=== PATIENT | male | born 1960 | race Caucasian/White ===

== ENCOUNTER 2020-12-25 07:33 | Outpatient (CLI) | payer BC, SELFPAY ==
[2020-12-25 07:37] VITALS: BMI 28.8
--- NOTE | 2020-12-25 07:51 | ECG_ITS ---
[facility] Test Date: 2020-12-25 Pat Name: Aaron Mcintosh Department: Room: Gender: Male Manager Food: : 1960 Requested By: Annamaria Cheney Order Number: [id number] Mireles MD: Frida Franco M.D. Interpretive Statements NAME OF STUDY: EXERCISE SESTAMIBI STRESS TEST INDICATION: Chest Pain Baseline blood pressure of 197/87 mm Hg, heart rate of 99 beats per minute and oxygen saturation of 96%. EKG showed normal sinus rhythm, normal axis with normal ST-Ts. The patient exercised for 4 minutes 6 seconds on a standard Tj protocol. Patient attained a maximum heart rate of 146 beats per minute(93 % of the maximum predicted heart rate) with a blood pressure at the peak exercise of 216/106 mm Hg and oxygen saturation 93%. The EKG at the peak exercise revealed sinus tachycardia with no significant ST-T wave changes. Patient did not have any chest pain or any significant arrhythmis with the exercise. The study was terminated due to exertional fatigue and shortness of breath. During the recovery phase, there were no new changes. Patient developed intraprocedural shortness of breath that resolved by the end of recovery. Blood pressure at the end of the recovery phase was 190/113 mm Hg with a heart rate of 99 beats per minute and oxygen saturation of 96%. CONCLUSION: 1. Normal EKG response to treadmill exercise. 2. No exercise-induced chest pain or cardiac arrhythmia. 3. Patient exercised for 4 minutes and 6 seconds. Decreased exercise tolerance for age, attained a maximum of 7 METs. Maximum VO2 24.5 mL/kg/min. 4. Baseline hypertension with normal response to exercise. 5. Perfusion scan will be documented separately. Electronically Signed On 12-28-2020 18:06:09 CDT by Frida Franco M.D. [id number]
--- NOTE | 2020-12-25 07:51 | NMCV_ITS ---
NM paul perf SPECT r/s* [id number] YeimyAaron rodriguez Age: 60 Gender: M : 1960 Exam Date: 12/25/2020 08:43 Ordering Phys: Annamaria Lock MD Technologist: ANNIA Jones Exam Location: [facility] Indications: ESSENTIAL HYPERTENSION STRESS TEST Please see separate stress test report in [facility] for full findings IMAGE PROTOCOL Rest/Stress 1 Exercise Day Radiopharmaceutical Dose (mCi) Administration Site Administered by Rest: Tc-99m 10.9 IV ANNIA Jones Sestamibi Stress:Tc-99m 32.9 IV ANNIA Leo Sestamibi Rest: 25-Dec-2020 60 Discovery 630 Stress: 25-Dec-2020 15 Discovery 630 Radiopharmaceutical was injected at 86 % maximum heart rate. Images obtained in supine and prone position. SPECT RESULTS Technical Quality: Excellent Raw Data Analysis: Normal Image Corrections: No attenuation or motion correction applied Summed Stress Score: 0 Summed Rest Score: 0 Summed Difference Score: 0 PERFUSION FINDINGS Small size perfusion abnormality of mild severity of apical lateral wall on rest images with improved tracer uptake on stress images. This is suggestive of attenuation artifact. FUNCTIONAL RESULTS (calculated via Gated SPECT) Stress Image LV EF (%): 76 Stress EDV (mL):101 TID: 0.92 Stress ESV (mL):24 FUNCTIONAL FINDINGS: The left ventricle is normal in size. Transient Ischemia Dilatation of 0.92. There is normal left ventricular systolic function. The left ventricular ejection fraction is normal with a value of 76%. There is normal left ventricular wall thickening with no regional wall motion abnormality. Normal end-diastolic end-systolic volumes. IMPRESSIONS 1. Myocardial perfusion imaging is normal. 2. Overall left ventricular systolic function is normal without regional wall motion abnormalities. 3. The left ventricular ejection fraction is normal with a value of 76%. 4. Normal EKG response to treadmill exercise. Please refer to separate report for details. 5. Scan indicates low risk for cardiac events. Frida Franco MD (Electronically Signed) Final Date: 28 December 2020 18:09 S
--- NOTE | 2020-12-25 09:27 | SUR.PREOP ---
Patient reports no pain or discomfort prior to the start of the procedure.
[2020-12-25 10:00] VITALS: BP 178/111; PULSE 93
== END 2020-12-25 07:34 | disposition home or self-care (01) ==
LOC: CDL 07:34
PROVIDERS: Visit Provider Family Medicine
DX: R07.9 Chest pain, unspecified (principal); I10 Essential (primary) hypertension
CPT/HCPCS: 78452; 93017; A9500

== ENCOUNTER 2021-01-01 08:05 | Outpatient (CLI) | payer BC, SELFPAY ==
--- NOTE | 2021-01-01 08:26 | USCV_ITS ---
Aaron Mcintosh Age: 60 Gender: M : 1960 Exam Date: 01/01/2021 08:33 Ordering Phys: Annamaria Lock MD Technologist: Roseann Watkins Exam Location: [facility] [place] Indication: ESSENTIAL HYPERTENSION Aortic Velocity @ SMA (cm/s) 69.9 RIGHT KIDNEY LEFT KIDNEY Velocity (cm/s) Velocity (cm/s) Sys/Best Sys/Best Resistive Index Resistive Index 46.5 / 28.4 0.40 Proximal Renal Artery 51.0 / 14.6 0.71 93.4 / 60.3 0.36 Mid Renal Artery 55.9 / 17.0 0.70 70.6 / 21.7 0.69 Distal Renal Artery 49.8 / 17.6 0.65 67.3 / 27.2 0.60 Hilar 40.7 / 17.0 0.58 43.4 / 15.9 0.63 Upper Pole 29.4 / 10.3 0.65 40.1 / 10.9 0.73 Mid Pole 35.5 / 16.1 0.53 34.0 / 9.1 0.73 Lower Pole 48.6 / 13.4 0.73 1.30 Renal Aortic Ratio 0.80 Accleration Index (cm/sec2) 871.00 Hilar 773.00 366.00 Upper Pole 1077.0 0 677.00 Mid Pole 460.00 346.00 Lower Pole 506.00 116.6 Kidney Length (mm) 110.3 FINDINGS Normal renal arterial Doppler flow velocities. Normal velocity ratios and indicis Normal kidney dimensions bilaterally. CONCLUSIONS No evidence of any significant renal artery stenosis, based on the above findings. Normal kidney dimensions bilaterally. Dr Janett Villatoro MD [facility] (Electronically Signed) Final Date: 01 January 2021 19:37 S
== END 2021-01-01 08:06 | disposition home or self-care (01) ==
PROVIDERS: Visit Provider Family Medicine
DX: I10 Essential (primary) hypertension (principal)
CPT/HCPCS: 93975

== ENCOUNTER → 2021-10-24 14:04 | Outpatient (BNVA) | payer BC, SELFPAY | PROVIDERS: Visit Provider Family Medicine | DX: I10 Essential (primary) hypertension (principal); Z13.220 Encounter for screening for lipoid disorders; Z13.6 Encounter for screening for cardiovascular disorders; Z76.89 Persons encountering health services in other specified circumstances; D49.2 Neoplasm of unspecified behavior of bone, soft tissue, and skin | CPT/HCPCS: 80053; 80061; 84153; 84443; 85025 ==

== ENCOUNTER 2021-12-26 06:40 | Outpatient (CLI) | payer BC, SELFPAY ==
--- NOTE | 2021-12-26 07:15 | MR_ITS ---
WS: [id number] MRI THORACIC SPINE WITHOUT CONTRAST TECHNIQUE: Sagittal T1, T2 and STIR imaging. Axial T2 imaging. Noncontrast imaging obtained. 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 No acute compression. No high-grade central canal stenosis. Disc space heights a nd vertebral body heights relatively well-preserved. A few incidental benign hemangiomas. Mild to mod erate facet arthropathy lower thoracic spine. Tiny shallow central protrusion T8-T9 with slight contact of the thoracic cord. No significant centra l canal stenosis. Mild bony foraminal narrowing RIGHT T3-T4, RIGHT T8-T9, RIGHT T9-T10 Normal caliber thoracic aorta. Adrenal glands are normal. 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 This is barely discernible today without gadolinium. No evid ence of progressive neural foraminal expansion. Spinal canal appears patent at this level. If diagnostic comparison desired, recommend follow-up with gadolinium enhancement. MR/MR thoracic spin wo con* [id number] IMPRESSION: 1. Mild thoracic curve. Mild thoracic kyphosis. No acute compression. No high- grade central canal stenosis. 2. Cord signal is normal. 3. Shallow central protrusion T8-T9 with slight indentation on the thoracic co rd. Spinal canal is patent. 4. Mild facet arthropathy lower thoracic spine. 5. Mild RIGHT bony foraminal narrowing RIGHT T3-T4, RIGHT T8-T9, and RIGHT T9- T10 6. 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 Sp inal canal at this level appears patent. If diagnostic comparison desired, celi mmend follow-up with gadolinium.
== END 2021-12-26 06:41 | disposition home or self-care (01) ==
LOC: RAD 06:41
PROVIDERS: Visit Provider Family Medicine
DX: D49.2 Neoplasm of unspecified behavior of bone, soft tissue, and skin (principal)
CPT/HCPCS: 72146; 80053; 80061

== ENCOUNTER → 2022-09-17 14:34 | Outpatient (BNVA) | payer BC, SELFPAY | PROVIDERS: PCP Family Medicine; Visit Provider Family Medicine | DX: N39.0 Urinary tract infection, site not specified (principal); N41.0 Acute prostatitis; N45.1 Epididymitis | CPT/HCPCS: 81000; 87086 ==

== ENCOUNTER 2022-12-05 12:46 | Inpatient (IN) | payer BC, SELFPAY ==
[2022-12-05] VITALS (13 sets, daily range): BP systolic 157–187; BP diastolic 99–123; PULSE 96–114; RESP 13–27; TEMP 36.8; O2SAT 94–99; BMI 28.2
[2022-12-05 14:40] LABS: Basophils # 0.1 10^3/uL (0.0-0.1); Basophils % 1.3 %; Eosinophils # 0.2 10^3/uL (0.0-0.8); Eosinophils % 2.4 %; Hematocrit 41.7 % (42.0-52.0); Hemoglobin 14.4 g/dL (11.7-16.6); Lymphocytes # 0.8 10^3/uL (0.8-4.8); Lymphocytes % 12.6 %; Mean Corpuscular HGB Conc 34.5 g/dL (30.0-36.0); Mean Corpuscular Hemoglobin 33.7 pg (28.0-34.0); Mean Corpuscular Volume 97.7 fl (80-94); Mean Platelet Volume 10.5 fL (7.4-10.4); Monocytes # 0.7 10^3/uL (0.2-0.9); Monocytes % 11.7 %; Neutrophils # 4.46 10^3/uL (1.8-7.7); Neutrophils % 71.2 %; Nucleated Red Blood Cells % 0 %; Platelet Count 182 10^3/cmm (130-400); Red Blood Count 4.27 10^6/uL (4.1-5.3); Red Cell Distribution Width 11.9 % (12.1-15.1); White Blood Count 6.3 10^3/uL (4.0-10.0)
[2022-12-05 14:55] LABS: Alanine Aminotransferase 148 U/L (0-41); Albumin Level 4.6 g/dL (3.5-5.2); Alkaline Phosphatase 82 U/L (40-130); Anion Gap 28.2 (5-19); Aspartate Amino Transferase 165 U/L (0-40); Blood Urea Nitrogen 14 mg/dL (8-23); Carbon Dioxide 24 mmol/L (22-29); Chloride 86 mmol/L (98-107); Globulin 3.2 g/dL (1.3-4.6); Glomerular Filtration Rate 19.7 mL/min (90-130); Glucose 77 mg/dL (65-115); Osmolality Calculated 279 mOsm/kg (285-295); Potassium 3.2 mmol/L (3.5-5.1); Sodium 135 mmol/L (136-145); Total Protein 7.8 g/dL (6.6-8.7)
--- NOTE | 2022-12-05 15:05 | CT_ITS ---
WS: [id number] CT ABDOMEN PELVIS TECHNIQUE: Noncontrast CT of the abdomen and pelvis with coronal and sagittal reformatted images. CLINICAL INFORMATION: acute renal failure, elevated lfts, ruq, llq abd pain COMPARISON: None. DLP: 717.[address] scans at [facility] use at least one of these dose optimization techniques: automated e xposure control; mA and/or kV adjustment per patient size (includes targeted exams where dose is matc hed to clinical indication); or iterative reconstruction. FINDINGS: Lung bases are well aerated. Hepatomegaly. Diffuse fatty infiltration liver. Slightly increased atten uation in the gallbladder may represent sludge. Portal vein and splenic vein are patent. Normal splee n. Normal GE junction. Suggestion of trace edema in the pancreatic head may represent acute pancreati tis but equivocal. Recommend correlation with pancreatic enzymes Adrenal glands are normal. No obstructing renal or ureteral calculi. Mild perinephric edema can be se en with renal insufficiency. No hydronephrosis. Sigmoid diverticulosis. No evidence of acute diverticulitis. Sigmoid anastomosis. Normal appendix. No free fluid in the abdomen or pelvis. Small fat-containing umbilical and periumbilical hernias. CT/CT abdomen pelvis wo con [id number] IMPRESSION: 1. Trace edema in the pancreatic head.Correlation for acute pancreatitis and p ancreatic enzymes. 2. Small amount of increased attenuation in the gallbladder suspicious for gal lbladder sludge. This can be further evaluated with ultrasound. 3. Hepatomegaly with diffuse fatty infiltration liver. 4. No hydronephrosis in either kidney. No obstructing renal or ureteral calcul i. 5. Sigmoid diverticulosis. No evidence of acute diverticulitis. 6. Prior sigmoid anastomosis. 7. Small fat-containing umbilical and supraumbilical hernias.
[2022-12-05] MEDS: sodium chloride 0.9% 1,000 ML 999 ML IV (15:09)
[2022-12-05] MEDS: hyDRALAzine 20 mg/mL INJ 1 mL 10 MG IVP (15:11)
--- NOTE | 2022-12-05 15:28 | W.ED.RECABL ---
HPI - Recheck/Abnormal Lab/Rx General: Chief Complaint: Recheck/Abnormal Lab/Rx Stated Complaint: fall, head injury, [place] sent Time Seen by Provider: 12/05/22 14:50 History of Present Illness: Patient presents to the ER for abnormal labs. Patient saw his PCP yesterday and got a call today that he had elevated liver enzymes elevated calcium and told he was in renal failure. Patient has been having some left lower quadrant abdominal pain also some right upper quadrant abdominal pain. Patient does have a history of diverticulitis and he said this feels similar. Initial visit (ago): day(s) (Yesterday) Initial visit for: other (Left lower quadrant abdominal pain) Returns today for: other (Lab recheck and further evaluation) Context: called for abnormal lab result Associated symptoms: abdominal pain Review of Systems General: Reports: 10 or more systems reviewed and unremarkable except in HPI and below Const: Denies: fever(s) or chills Eyes: Denies: change in vision or blind spots ENMT: Denies: throat pain or enlarged tonsils Card: Denies: chest pain, palpitations or irregular heart rhythm Resp: Denies: dyspnea, productive cough or non-productive cough GI: Reports: abdominal pain : Denies: flank pain, difficulty urinating or dysuria Musc: Denies: neck pain, back pain or extremity pain Skin/Breast: Denies: rash or pruritus Neuro: Denies: headache(s) or numbness in extremities PFS ED PFSH: Medical History History of intestine removal Hypertension Meatal stenosis Onychodystrophy Torus mandibularis Surgical History History of cataract surgery Family History Mother Cancer Father CAD (coronary artery disease) Social History Smoking and tobacco status: never smoked Second hand smoke exposure: No Alcohol intake: current Alcohol intake frequency: holidays/special occasions only Desire information about alcohol rehabilitation?: No Substance/Drug Use: never Desire information about substance/drug rehabilitation?: No Adopted: No Caregiver/support person: No Lives independently: No Physical Exam Const: COMMON NORMALS: no acute distress, average body habitus, patient oriented x3, no limitations, healthy appearing, alert and well nourished HENMT: COMMON NORMALS: normocephalic, atraumatic, hearing grossly normal bilaterally, Normal external nose present and moist oral mucous membranes HEAD & SCALP: normocephalic and atraumatic NOSE: Normal external nose present Eye: COMMON NORMALS: Equal, round and reactive pupils present, EOMs intact bilaterally, conjunctivae normal and no scleral icterus CONJUNCTIVA: Yes conjunctivae normal PUPIL: Yes Equal, round and reactive pupils present Neck/C-Spine: COMMON NORMALS: full ROM, no lymphadenopathy, supple, no meningeal signs, no JVD and Thyroid normal THYROID: Thyroid normal Lymph: LYMPHATIC: no lymphadenopathy noted and no lymphedema noted Chest: COMMONS NORMALS: normal inspection of the chest and normal palpation of entire chest wall Resp: COMMON NORMALS: normal respiratory effort, No retractions, No use of accessory muscles and clear to auscultation bilaterally AUSCULTATION: clear to auscultation bilaterally Cardio: COMMON NORMALS: no JVD, regular rate, S1 normal heart sound present, S2 normal heart sound present, No clicks present (Cardio) and No murmurs present (Cardio) RATE: regular rate HEART SOUNDS: S1 normal heart sound present and S2 normal heart sound present GI: COMMON NORMALS: Soft to palpation INSPECTION: Yes normal to inspection AUSCULTATION: Yes normoactive bowel sounds PALPATION: Yes Soft to palpation and Yes Tenderness to palpation present (GI) Details: LLQ and RUQ : COMMON NORMALS: Yes no CVA tenderness BLADDER/KIDNEY EXAM: Yes no CVA tenderness Back/Pelvis: COMMON NORMALS: no CVA tenderness Neuro: COMMON NORMALS: patient oriented x3 SENSORIUM/ORIENTATION: Yes alert MENINGEAL SIGNS: Yes no meningeal signs Course Vital Signs: Vital signs: Vital Signs Temperature 98.3 F 12/05/22 13:14 Pulse Rate 106 H 12/05/22 17:00 Respiratory Rate 27 H 12/05/22 16:30 Blood Pressure 187/115 12/05/22 17:00 Pulse Oximetry 97 12/05/22 17:00 Oxygen Delivery Me thod Room Air 12/05/22 14:51 MDM - Recheck/Abnormal Lab/Rx Medical Decision Making Patient presents today for abnormal labs from his family practice doctor. Elevated liver enzymes, elevated creatinine and elevated calcium. Patient went there yesterday just for diffuse abdominal pain thinking he had diverticulitis. Patient's doctor called him today and told him to come to the ER to be further evaluated lab work was obtained as well as a CT and ultrasound the abdomen. Lab work showed BUN of 14 creatinine 3.2, liver enzymes of AST 165 ALT 148 total bili of 1.0 alkaline phosphatase 82, lipase of 63, abdomen pelvis showed trace edema in the pancreatic head and a small amount of suspicion for gallbladder sludge. However ultrasound was essentially negative. Dr. Carmichael was consulted and agreed to admit the patient for further evaluation and treatment but wanted surgery involved Dr. Ruiz surgeon was consulted reviewed that the patient and the lab work with him. He said we will do nothing different from a his standpoint. Patient will be admitted. Differential Diagnosis Unlikely encounter for medication refill, encounter for wound recheck, encounter for recheck of burn, encounter for removal of sutures or warfarin-induced coagulopathy Medical Records I reviewed the patient's medical records. Lab Data I reviewed the patient's lab results. 12/05/22 14:21 12/05/22 14:21 Radiology Impressions Abdomen/Pelvis CT 12/05/22 15:05 IMPRESSION: 1. Trace edema in the pancreatic head.Correlation for acute pancreatitis and pancreatic enzymes. 2. Small amount of increased attenuation in the gallbladder suspicious for gallbladder sludge. This can be further evaluated with ultrasound. 3. Hepatomegaly with diffuse fatty infiltration liver. 4. No hydronephrosis in either kidney. No obstructing renal or ureteral calculi. 5. Sigmoid diverticulosis. No evidence of acute diverticulitis. 6. Prior sigmoid anastomosis. 7. Small fat-containing umbilical and supraumbilical hernias. Laboratory Results WBC 6.3 10^3/uL (4.0-10.0) 12/05/22 14:21 RBC 4.27 10^6/uL (4.1-5.3) 12/05/22 14:21 Hgb 14.4 g/dL (11.7-16.6) 12/05/22 14:21 Hct 41.7 % (42.0-52.0) L 12/05/22 14:21 MCV 97.7 fl (80-94) H 12/05/22 14:21 MCH 33.7 pg (28.0-34.0) 12/05/22 14:21 MCHC 34.5 g/dL (30.0-36.0) 12/05/22 14:21 RDW 11.9 % (12.1-15.1) L 12/05/22 14:21 Plt Count 182 10^3/cmm (130-400) 12/05/22 14:21 MPV 10.5 fL (7.4-10.4) H 12/05/22 14:21 Neut % (Auto) 71.2 % 12/05/22 14:21 Lymph % (Auto) 12.6 % 12/05/22 14:21 Kaufman % (Auto) 11.7 % 12/05/22 14:21 Eos % (Auto) 2.4 % 12/05/22 14:21 Baso % (Auto) 1.3 % 12/05/22 14:21 Neut # (Auto) 4.46 10^3/uL (1.8-7.7) 12/05/22 14:21 Lymph # (Auto) 0.8 10^3/uL (0.8-4.8) 12/05/22 14:21 Kaufman # (Auto) 0.7 10^3/uL (0.2-0.9) 12/05/22 14:21 Eos # (Auto) 0.2 10^3/uL (0.0-0.8) 12/05/22 14:21 Baso # (Auto) 0.1 10^3/uL (0.0-0.1) 12/05/22 14:21 Nucleated RBC % (auto) 0 % 12/05/22 14:21 Nucleated RBCs # 0.0 /100WBC 12/05/22 14:21 Sodium 135 mmol/L (136-145) L 12/05/22 14:21 Potassium 3.2 mmol/L (3.5-5.1) L 12/05/22 14:21 Chloride 86 mmol/L (98-107) L 12/05/22 14:21 Carbon Dioxide 24 mmol/L (22-29) 12/05/22 14:21 Anion Gap 28.2 (5-19) H 12/05/22 14:21 BUN 14 mg/dL (8-23) 12/05/22 14:21 Creatinine 3.2 mg/dL (0.7-1.2) H 12/05/22 14:21 GFR Calculation 19.7 mL/min (90-130) L 12/05/22 14:21 Glucose 77 mg/dL (65-115) 12/05/22 14:21 Calculated Osmolality 279 mOsm/kg (285-295) L 12/05/22 14:21 Calcium 11.0 mg/dL (8.5-10.5) H 12/05/22 14:21 Phosphorus 5.7 mg/dL (2.5-4.5) H 12/05/22 14:21 Magnesium 0.9 mg/dL (1.7-2.3) L 12/05/22 14:21 Total Bilirubin 1.0 mg/dL (0.15-1.2) 12/05/22 14:21 AST 165 U/L (0-40) H 12/05/22 14:21 ALT 148 U/L (0-41) H 12/05/22 14:21 Alkaline Phosphatase 82 U/L (40-130) 12/05/22 14:21 Total Protein 7.8 g/dL (6.6-8.7) 12/05/22 14:21 Albumin 4.6 g/dL (3.5-5.2) 12/05/22 14:21 Globulin 3.2 g/dL (1.3-4.6) 12/05/22 14:21 Lipase 63 U/L (13-60) H 12/05/22 14:27 Discharge Plan Discharge Patient Disposition: Admitted As Inpatient Clinical Impression: Acute renal failure, Elevated liver enzymes, Hypomagnesemia, Hypercalcemia Condition: Stable Prescriptions: No Action multivitamin [Daily Multi-Vitamin] Tablet 1 tab PO DAILY amlodipine 5 mg tablet 5 mg PO DAILY Qty: 30 5RF losartan 50 mg tablet 50 mg PO BID Qty: 30 5RF metoprolol succinate 100 mg tablet extended release 24 hr 100 mg PO DAILY Qty: 30 5RF ketoconazole 2 % cream 1 applic topical BID Qty: 60 3RF Rx Instructions: Apply to affected areas in skin folds x 3 weeks then prn for flares tramadol 50 mg tablet 50 mg PO BID PRN (Reason: pain) Qty: 10 0RF mupirocin 2 % ointment 1 applic topical BID Qty: 22 1RF Rx Instructions: Apply to affected area abdomen until healed lidocaine (PF) 50 mg/5 mL (1 %) syringe 1 ml SUBCUT ONCE Qty: 1 0RF doxycycline hyclate 100 mg tablet 100 mg PO BID 10 Days Qty: 20 0RF sulfamethoxazole-trimethoprim [Bactrim DS] 800-160 mg tablet 1 tab PO BID 28 Days Qty: 56 0RF tamsulosin 0.4 mg capsule 0.4 mg PO DAILY Qty: 30 5RF rosuvastatin [Crestor] 20 mg tablet 20 mg PO DAILY Qty: 30 5RF hydrochlorothiazide 12.5 mg tablet 12.5 mg PO DAILY Qty: 30 5RF Referrals: Annamaria Lock MD [Primary Care Provider] - Coding Level of Care Code ED Client Technical Support Associate for Michael Fong
[2022-12-05 15:49] LABS: Phosphorus 5.7 mg/dL (2.5-4.5)
--- NOTE | 2022-12-05 16:17 | USR_ITS ---
PROCEDURE INFORMATION: Exam: US Abdomen, Limited; Right Upper Quadrant Exam date and time: 12/05/2022 4:43 PM Age: 62 years old Clinical indication: Abdominal pain; Acute; Additional info: Ruq US, ruq pain, elevated lfts, abnormal gb on CT TECHNIQUE: Imaging protocol: Real time ultrasound of the abdomen with image documentation. Limited exam focused on the right upper quadrant. COMPARISON: CT abdomen pelvis wo con [id number] 12/05/2022 3:24 PM FINDINGS: Liver: Diffuse increased echogenicity is seen consistent with steatosis. No masses. The liver span is 17 cm. There is a circumscribed cyst in the left hepatic lobe 1.2 cm x 1.2 cm x 1 cm Gallbladder: Normal. No gallstones. There is no gallbladder wall thickening. Biliary ducts: Normal. No stones. No dilation. CBD 3.6 mm Pancreas: Visualized pancreas is unremarkable. Right kidney: Normal. No mass. No hydronephrosis. 11.9 cm x 5.5 cm x 6.8 cm US/US abdomen limited [id number] IMPRESSION: 1. Hepatic steatosis 2. Benign cyst left hepatic lobe 3. Otherwise negative sonogram of the abdomen
[2022-12-05 16:23] LABS: Magnesium 0.9 mg/dL (1.7-2.3)
[2022-12-05 16:50] LABS: Lipase 63 U/L (13-60)
[2022-12-05] MEDS: magnesium sulfate premix 2 GM/50 ML PIGGYBACK IV ×2 (17:00→19:21)
--- NOTE | 2022-12-05 18:06 | PM.HP ---
Providers/Chief Complaint Primary Care Provider: Annamaria Lock MD Chief Complaint: fall, head injury, [place] sent History of Present Illness Aaron Mcintosh is a 62 year old male with a past medical history of colectomy for diverticulitis? Hypertension, hyperlipidemia, who presents [facility] due to nausea, abdominal pain, abnormal labs. Patient tells me since the last week he has been having left lower quadrant abdominal pain, feeling nauseous, saw his primary care was placed on antibiotic therapy he is not sure which one, but continued to have abdominal pain, feeling nauseous, poor appetite, no lightheadedness, no dizziness, does report drinking alcohol, drinking 18 ounce of vodka daily during the week, his last drink was on Thursday, no headache, blurry vision, no chest pain Review of Systems Const: Denies: fever(s) Eyes: Denies: change in vision Card: Denies: chest pain or palpitations Resp: Denies: dyspnea or non-productive cough GI: Reports: abdominal pain and nausea : Denies: flank pain or difficulty urinating Musc: Denies: back pain Skin/Breast: Denies: rash Neuro: Denies: headache(s) Psych: Denies: anxiety Medications/Allergies Home Medications Medication Instructions Recorded Confirmed Last Taken Type multivitamin (Daily Multi-Vitamin 1 tab PO DAILY 08/28/20 09/18/22 Unknown History tablet) amlodipine 5 mg tablet 5 mg PO DAILY #30 tabs 10/24/21 09/18/22 Unknown Rx losartan 50 mg tablet 50 mg PO BID #30 tabs 10/24/21 09/18/22 Unknown Rx metoprolol succinate 100 mg 100 mg PO DAILY #30 tabs 10/24/21 09/18/22 Unknown Rx tablet,extended release 24 hr rosuvastatin 20 mg tablet (Crestor) 20 mg PO DAILY #30 tabs 11/05/21 09/18/22 Unknown Rx ketoconazole 2 % topical cream 1 applic topical BID #60 grams 02/21/22 09/18/22 Unknown Rx tramadol 50 mg tablet 50 mg PO BID PRN pain #10 tabs 06/13/22 09/18/22 Unknown Rx mupirocin 2 % topical ointment 1 applic topical BID #22 grams 09/08/22 09/18/22 Unknown Rx doxycycline hyclate 100 mg tablet 100 mg PO BID 10 days #20 tabs 09/17/22 09/18/22 Unknown Rx sulfamethoxazole 800 1 tab PO BID 28 days #56 tabs 09/17/22 09/18/22 Unknown Rx mg-trimethoprim 160 mg tablet (Bactrim DS) tamsulosin 0.4 mg capsule 0.4 mg PO DAILY #30 caps 09/17/22 09/18/22 Unknown Rx hydrochlorothiazide 12.5 mg tablet 12.5 mg PO DAILY #30 tabs 11/04/22 Unknown Rx Allergies Allergy/AdvReac Type Severity Reaction Status Date / Time levofloxacin [From Levaquin] Allergy Mild tendons Verified 09/18/22 13:18 hurt PFSH Acute PFSH: Medical History History of intestine removal Hypertension Meatal stenosis Onychodystrophy Torus mandibularis Surgical History History of cataract surgery Family History Mother Cancer Father CAD (coronary artery disease) Social History (Updated 12/05/22 @ 18:09 by Mendel Ny MD) Smoking and tobacco status: never smoked Second hand smoke exposure: No Alcohol intake: current Alcohol intake frequency: 0-2 Drinks per Day Substance/Drug Use: never Desire information about substance/drug rehabilitation?: No Adopted: No Caregiver/support person: No Lives independently: No Vitals/I&O/Wt Last Vital Signs Temp 98.3 F 12/05/22 13:14 Pulse 106 H 12/05/22 17:00 Resp 27 H 12/05/22 16:30 BP 171/100 12/05/22 17:30 Pulse Ox 95 12/05/22 17:30 O2 Del Method Room Air 12/05/22 14:51 Weight last 48 hrs Weight 86.636 kg Physical Exam Const: COMMON NORMALS: no acute distress and patient oriented x3 GENERAL APPEARANCE: cooperative, well kempt and well developed HENMT: COMMON NORMALS: normocephalic and Normal external nose present HEAD & SCALP: normocephalic NOSE: Normal external nose present THROAT: posterior oropharynx normal Eye: COMMON NORMALS: Equal, round and reactive pupils present, EOMs intact bilaterally, conjunctivae normal and no scleral icterus CONJUNCTIVA: Yes conjunctivae normal PUPIL: Yes Equal, round and reactive pupils present Neck/C-Spine: COMMON NORMALS: full ROM, no lymphadenopathy, no JVD, Thyroid normal and No carotid bruits THYROID: Thyroid normal Lymph: LYMPHATIC: no lymphadenopathy noted Chest: COMMONS NORMALS: normal inspection of the chest Resp: COMMON NORMALS: normal respiratory effort, No retractions, No use of accessory muscles and clear to auscultation bilaterally AUSCULTATION: clear to auscultation bilaterally Cardio: COMMON NORMALS: regular rate, regular rhythm, S1 normal heart sound present, S2 normal heart sound present, No murmurs present (Cardio) and Peripheral pulses 2+ throughout RATE: regular rate RHYTHM: regular rhythm HEART SOUNDS: S1 normal heart sound present and S2 normal heart sound present PERIPHERAL PULSES: Peripheral pulses 2+ throughout GI: OTHER: Abdomen soft, slightly distended, good bowel sounds, no guarding, no rebound, no rigidity, has exquisite right upper quadrant tenderness : COMMON NORMALS: Yes no CVA tenderness Back/Pelvis: COMMON NORMALS: no CVA tenderness Extremity: COMMON NORMALS: normal to inspection, no calf tenderness and no pedal edema Neuro: COMMON NORMALS: patient oriented x3, CN's II-XII intact bilaterally, moves all extremities, no focal motor deficits and no sensory deficits noted MENINGEAL SIGNS: Yes no meningeal signs Psych: COMMON NORMALS: mental status grossly normal, Normal thought process present, cooperative and speech normal APPEARANCE: Yes well kempt SPEECH: Yes normal speech THOUGHT PROCESS: Normal thought process present Skin: COMMON NORMALS: turgor normal and no jaundice GENERAL SKIN EXAM: turgor normal Data 12/05/22 14:21 12/05/22 14:21 A&P Assessment and plan (1) Right upper quadrant abdominal tenderness: (2) Acute renal failure: Qualifiers: Acute renal failure type: unspecified Qualified Code(s): N17.9 - Acute kidney failure, unspecified (3) Elevated liver enzymes: (4) Hypomagnesemia: (5) Hypercalcemia: (6) Hypokalemia: (7) Acute cholecystitis: (8) Acute pancreatitis: (9) Dehydration: (10) Intractable nausea and vomiting: (11) Alcoholism: (12) Goals of care, counseling/discussion: Plan Acute hypomagnesemia -Likely secondary to dehydration -Serum magnesium 0.9, has received 2 g of mag -We will give another 2 g of mag, EKG for QTc monitoring -Repeat mag in the morning, moved to CSU for cardiac monitoring Hypokalemia -Replaced 20meq potassium, EKG ordered, moved to CSU for cardiac monitoring History of alcoholism -[facility] protocol Acute cholecystitis Ultrasound Liver:? Diffuse increased echogenicity is seen consistent with steatosis.? No masses. The liver span is 17 cm.? There is a circumscribed cyst in the left hepatic lobe 1.2 cm x 1.2 cm x 1 cm Gallbladder: Normal. No gallstones. There is no gallbladder wall thickening. Biliary ducts: Normal. No stones. No dilation.? CBD 3.6 mm Pancreas: Visualized pancreas is unremarkable. Right kidney: Normal. No mass. No hydronephrosis.? 11.9 cm x 5.5 cm x 6.[address] scan 1.? Trace edema in the pancreatic head.Correlation for acute pancreatitis and pancreatic enzymes. 2.? Small amount of increased attenuation in the gallbladder suspicious for gallbladder sludge. This can be further evaluated with ultrasound. 3.? Hepatomegaly with diffuse fatty infiltration liver. 4.? No hydronephrosis in either kidney. No obstructing renal or ureteral calculi. 5.? Sigmoid diverticulosis. No evidence of acute diverticulitis. 6.? Prior sigmoid anastomosis. 7.? Small fat-containing umbilical and supraumbilical hernias. Plan -Clinically he has exquisite right upper quadrant tenderness -Keep n.p.o. -IV hydration -Pain control morphine -Zosyn for antibiotic coverage -General surgery consulted by ER Acute pancreatitis -Does have lipase elevation, CT showing trace edema in pancreatic head -Does have epigastric tenderness -As above n.p.o., IV fluids, pain control, Zosyn, general surgery consulted by ER Intractable nausea and vomiting, Zofran Hypercalcemia, will get an ionized calcium Acute kidney injury, IV hydration likely secondary intractable nausea, vomiting, monitor urine output monitor creatinine Goals of care discussion, patient would like to be a full code however he does not want to be kept on life-sustaining measures for the rest of his life if the likelihood of meaningful recovery is unlikely he he would like all life-sustaining measures to be stopped Lovenox for DVT prophylaxis Protonix for GI prophylaxis Spoke to ER doctor Spoke to patient Spoke to nursing staff Attestations Medical Necessity Statement*: Patient requires hospitalization, inpatient, greater than 2 midnights for right upper quadrant tenderness concerning for acute cholecystitis, with pancreatitis with elevated LFTs, hypomagnesemia, hypokalemia, and High Time for a total of 60 minutes, includes reviewing past or interval history, examining/interviewing patient, placing orders, counseling patient/family/other support, updating patient/family/other support, discussing plan of care with staff, communicating with other healthcare providers, documenting encounter and coordinating care Diagnoses Right upper quadrant abdominal tenderness R10.811 Acute renal failure N17.9 Acute renal failure type: unspecified Elevated liver enzymes R74.8 Hypomagnesemia E83.42 Hypercalcemia E83.52 Hypokalemia E87.6 Acute cholecystitis K81.0 Acute pancreatitis K85.90 Dehydration E86.0 Intractable nausea and vomiting R11.2 Alcoholism F10.20 Goals of care, counseling/discussion Z71.89
--- NOTE | 2022-12-05 18:24 | ECG_ITS ---
[facility] Test Date: 2022-12-05 Pat Name: Aaron Mcintosh Department: Room: 103 Gender: Male Social Media Job Titles: : 1960 Requested By: Mendel Ny Order Number: [id number] Chi MD: Manish Luo M.D. Measurements Intervals [place] Rate: 111 P: 64 TN: 124 QRS: -24 QRSD: 93 T: 53 QT: 327 QTc: 445 Interpretive Statements SINUS TACHYCARDIA POSSIBLE LEFT ATRIAL ENLARGEMENT [-0.1mV P-WAVE IN V1/V2] BORDERLINE LEFT AXIS DEVIATION [QRS AXIS < -20] ABNORMAL RHYTHM ECG No previous ECG available for comparison Electronically Signed On 12-06-2022 6:52:25 CDT by Manish Luo M.D. [email or web address]/store/[id number]
[2022-12-05 18:42] LABS: Ionized Calcium 1.3 mmol/L (1.1-1.4)
--- NOTE | 2022-12-05 18:55 | PC.PHAR ---
lovenox adjusted per renal dosing protocol: crcl <30 change to 30 mg q24h
--- NOTE | 2022-12-05 18:56 | PC.PHAR ---
[id number] zosyn: crcl >20: 3.375 q8h over 4 hours extended interval
[2022-12-05 19:03] LABS: Lactic Sepsis W/Reflex 1.9 mmol/L (0.5-2.2)
[2022-12-05 19:04] LABS: Troponin(5th) Baseline 33 ng/L (0-15)
[2022-12-05 19:14] LABS: Procalcitonin 0.33 ng/mL (0-0.5); Thyroid Stimulating Hormone 0.55 uIU/mL (0.27-4.20)
[2022-12-05] MEDS: LORazepam 2 mg Tablet PO (19:20)
[2022-12-05 19:25] LABS: Chol HDL Ratio 2.46 mg/dL (1.0-5.00); Cholesterol 231 mg/dL (0-200); HDL Cholesterol 94 mg/dL (60-100); LDL Cholesterol Calculated 122 mg/dL (50-129); Triglycerides 74 mg/dL (0-150)
[2022-12-05] MEDS: pantoprazole 40 mg SDV IVP (19:27)
[2022-12-05] MEDS: sodium chlor 0.9% + KCl 20 mEq 20 MEQ/1,000 ML BAG 75 MEQ IV (19:37)
[2022-12-05] MEDS: lidocaine 1% 5 ML in potassium chloride premix 100 ML 52.5 ML IV (19:37)
[2022-12-05] MEDS: piperacillin-tazobactam 3.375 GM in sodium chloride 0.9% (plus) 50 ML IV (19:39)
[2022-12-05] MEDS: LORazepam 2 mg/mL INJ 1 mL IVP (19:58)
--- NOTE | 2022-12-05 20:10 | ECG_ITS ---
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 Measurements Intervals [place] Rate: 103 P: 64 VA: 145 QRS: -22 QRSD: 93 T: 49 QT: 337 QTc: 442 Interpretive Statements SINUS TACHYCARDIA BORDERLINE LEFT AXIS DEVIATION [QRS AXIS < -20] ABNORMAL RHYTHM ECG Compared to ECG 12/05/2022 18:24:40 No significant changes Electronically Signed On 12-06-2022 6:57:01 CDT by Manish Luo M.D. [email or web address].[employer]/store/OM/[id number]
--- NOTE | 2022-12-05 20:21 | PC.NURSE ---
Received patient to the floor at 1855 via wheelchair from ED. Observed patient to be extremely anxious, complaining of headache and shakey. Performed CIWA as ordered. Medications given as ordered and documented. Patient stated, I probably have been drinking way too much lately. Will continue to monitor.
[2022-12-05 21:30] LABS: Estmated Average Glucose 105; Hemoglobin A1C 5.3 % (4.0-6.0)
[2022-12-05 23:01] LABS: Specific Gravity, Urine 1.005 (1.005-1.030); Urine Appearance Clear (CLEAR); Urine Color Colorless (Yellow); pH Urine 5 (5-7)
[2022-12-05 23:02] LABS: Add Urine Microscopic? YES; Bilirubin Urine Neg (Negative); Blood Urine 3+ (Negative); Glucose Urine UA Norm (Normal); Ketones Urine 2+ (Negative); Leukocyte Esterase Urine Trace (Negative); Nitrate Urine Negative (Negative); Protein Urine Neg (Negative); Urobilinogen Urine Norm (Negative)
[2022-12-05 23:03] LABS: Bacteria Urine TRACE /hpf; RBC Urine 0-4 /hpf (0-2); Squamous Epithelial Cell Urine 0-4 /hpf (0-5); WBC Urine 0-4 /hpf (0-5)
[2022-12-06] VITALS (26 sets, daily range): BP systolic 134–155; BP diastolic 82–108; PULSE 83–108; RESP 14–27; TEMP 36.7–37.1; O2SAT 95–98
[2022-12-06] MEDS: LORazepam 2 mg/mL INJ 1 mL IVP (00:02)
--- NOTE | 2022-12-06 00:05 | ECG_ITS ---
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 Measurements Intervals [place] [employer] Rate: 96 P: 60 MS: 151 QRS: -15 QRSD: 94 T: 42 QT: 356 QTc: 450 Interpretive Statements SINUS RHYTHM Compared to ECG 12/05/2022 19:51:47 Sinus tachycardia no longer present Electronically Signed On 12-06-2022 6:56:36 CDT by Manish Luo M.D. [email or web address] centerAd [facility]/store/[id number]
[2022-12-06 01:09] LABS: Basophils # 0.1 10^3/uL (0.0-0.1); Basophils % 1.2 %; Eosinophils # 0.1 10^3/uL (0.0-0.8); Eosinophils % 1.6 %; Hematocrit 35.4 % (42.0-52.0); Hemoglobin 12.1 g/dL (11.7-16.6); Lymphocytes # 0.4 10^3/uL (0.8-4.8); Lymphocytes % 7.8 %; Mean Corpuscular HGB Conc 34.2 g/dL (30.0-36.0); Mean Corpuscular Hemoglobin 33.9 pg (28.0-34.0); Mean Corpuscular Volume 99.2 fl (80-94); Mean Platelet Volume 10.4 fL (7.4-10.4); Monocytes # 0.7 10^3/uL (0.2-0.9); Monocytes % 14.8 %; Neutrophils # 3.59 10^3/uL (1.8-7.7); Nucleated Red Blood Cells % 0 %; Platelet Count 130 10^3/cmm (130-400); Red Blood Count 3.57 10^6/uL (4.1-5.3); Red Cell Distribution Width 12.1 % (12.1-15.1); White Blood Count 4.9 10^3/uL (4.0-10.0)
[2022-12-06 01:30] LABS: Troponin 5 6HR 36.94 ng/L (0-15)
[2022-12-06 01:32] LABS: Alanine Aminotransferase 105 U/L (0-41); Albumin Level 3.8 g/dL (3.5-5.2); Alkaline Phosphatase 67 U/L (40-130); Anion Gap 26.8 (5-19); Aspartate Amino Transferase 109 U/L (0-40); Blood Urea Nitrogen 18 mg/dL (8-23); Calcium 9.8 mg/dL (8.5-10.5); Carbon Dioxide 20 mmol/L (22-29); Chloride 92 mmol/L (98-107); Globulin 2.4 g/dL (1.3-4.6); Glomerular Filtration Rate 19.7 mL/min (90-130); Glucose 70 mg/dL (65-115); Magnesium 1.7 mg/dL (1.7-2.3); Osmolality Calculated 280 mOsm/kg (285-295); Phosphorus 5.5 mg/dL (2.5-4.5); Potassium 3.8 mmol/L (3.5-5.1); Sodium 135 mmol/L (136-145); Total Bilirubin 0.9 mg/dL (0.15-1.2); Total Protein 6.2 g/dL (6.6-8.7)
[2022-12-06 01:35] LABS: Troponin 5 6HR Delta 3.94 ng/L (0-12)
[2022-12-06] MEDS: piperacillin-tazobactam 3.375 GM in sodium chloride 0.9% (plus) 50 ML IV ×3 (01:52→18:14)
[2022-12-06] MEDS: pantoprazole 40 mg SDV IVP ×2 (06:01→18:14)
[2022-12-06 06:29] LABS: Glucose Point of Care 73 mg/dL (70-110)
--- NOTE | 2022-12-06 06:51 | PC.NURSE ---
Patient extremely restless. Will not leave telemetry in place. Pulled out IV catheter CIWA assessed as documented.
[2022-12-06] MEDS: LORazepam 2 mg Tablet PO ×2 (06:54→23:42)
[2022-12-06] MEDS: amlodipine 5 mg Tablet 10 MG PO (09:48)
[2022-12-06] MEDS: tamsulosin 0.4 mg Capsule PO (09:48)
[2022-12-06] MEDS: folic acid 1 mg Tablet PO (09:48)
[2022-12-06] MEDS: thiamine 100 mg Tablet PO (09:48)
[2022-12-06] MEDS: metoprolol succinate ER (24 HR) 100 mg Tablet PO (09:49)
[2022-12-06] MEDS: sodium chlor 0.9% + KCl 20 mEq 20 MEQ/1,000 ML BAG 75 MEQ IV (09:49)
[2022-12-06] MEDS: multivitamin therapeutic Tablet 1 TAB PO (09:49)
--- NOTE | 2022-12-06 10:35 | P.CONIM_ITS ---
Providers/Reason For Consult Consulting Physician/Specialty*: Dr. Dm Ruiz, DO/General surgery Reason for Consult*: Abdominal pain Attending Physician: Mendel Ny MD Primary Care Provider: Annamaria Lock MD History of Present Illness History of Present Illness Aaron Mcintosh is a 62 year old male, who drinks 1/5 of liquor a day, presented to the hospital with a few day history of progressive abdominal pain. He reports that his pain is in the left lower quadrant but on exam he is tender in the epigastrium and right upper quadrant. Pain radiates to his back. Palpation makes the pain worse. Nothing makes pain better. General surgery was consulted because of his right upper quadrant tenderness. Patient does report some nausea. Denies any hematemesis, hematochezia and/or melena. CT of the abdomen pelvis, along with gallbladder ultrasound, revealed no gallbladder pathology however there is edema of the pancreatic head with surrounding inf lammation. Patient reports that he believes he overdid it on drinking the other day. Review of Systems General: Reports: 10 or more systems reviewed and unremarkable except in HPI and below Medications/Allergies Home Medications Medication Instructions Recorded Confirmed Last Taken Type multivitamin (Daily Multi-Vitamin 1 tab PO DAILY 08/28/20 12/05/22 12/05/22 History tablet) amlodipine 5 mg tablet 5 mg PO DAILY #30 tabs 10/24/21 12/05/22 Unknown Rx losartan 50 mg tablet 50 mg PO BID #30 tabs 10/24/21 12/05/22 Unknown Rx metoprolol succinate 100 mg 100 mg PO DAILY #30 tabs 10/24/21 12/05/22 Unknown Rx tablet,extended release 24 hr rosuvastatin 20 mg tablet (Crestor) 20 mg PO DAILY #30 tabs 11/05/21 12/05/22 Unknown Rx tramadol 50 mg tablet 50 mg PO BID PRN pain #10 tabs 06/13/22 12/05/22 Unknown Rx tamsulosin 0.4 mg capsule 0.4 mg PO DAILY #30 caps 09/17/22 12/05/22 12/05/22 Rx hydrochlorothiazide 12.5 mg tablet 12.5 mg PO DAILY #30 tabs 11/04/22 12/05/22 Unknown Rx Allergies Allergy/AdvReac Type Severity Reaction Status Date / Time levofloxacin [From Levaquin] Allergy Mild tendons Verified 09/18/22 13:18 hurt Current Medications Generic Name Dose Route Start Last Admin Trade Name Freq PRN Reason Stop Dose Admin Amlodipine Besylate 10 mg 12/06/22 09:00 12/06/22 09:48 Amlodipine 5 Mg Tablet PO 10 mg DAILY TOAN Administration Enoxaparin Sodium 30 mg 12/05/22 20:00 12/05/22 19:47 Enoxaparin 30 Mg/0.3 Ml Syringe SUBCUT Not Given Q24H TOAN Folic Acid 1 mg 12/06/22 09:00 12/06/22 09:48 Folic Acid 1 Mg Tablet PO 1 mg DAILY TOAN Administration Piperacillin Sod/Tazobactam 50 mls @ 12.5 mls/hr 12/05/22 19:00 12/06/22 06:01 Sod 3.375 gm/ Sodium Chloride IV Infused Q8H TOAN Infusion Lorazepam 2 mg 12/05/22 18:35 12/06/22 06:54 Lorazepam 2 Mg Tablet PO 2 mg Q4H PRN Administration WITHDRAWAL Protocol Lorazepam 2 mg 12/05/22 18:35 12/06/22 00:02 Lorazepam 2 Mg/Ml Inj 1 Ml IVP 2 mg PRN PRN Administration WITHDRAWAL Protocol Metoprolol Succinate 100 mg 12/06/22 09:00 12/06/22 09:49 Metoprolol Succinate Er (24 Hr) 100 Mg Tablet PO 100 mg DAILY TOAN Administration Multivitamins Therapeutic 1 tab 12/06/22 09:00 12/06/22 09:49 Multivitamin Therapeutic Tablet PO 1 tab DAILY TOAN Administration Pantoprazole Sodium 40 mg 12/05/22 19:00 12/06/22 06:01 Pantoprazole 40 Mg Sdv IVP 40 mg Q12H TOAN Administration Tamsulosin HCl 0.4 mg 12/06/22 09:00 12/06/22 09:48 Tamsulosin 0.4 Mg Capsule PO 0.4 mg DAILY TOAN Administration Thiamine Mononitrate 100 mg 12/06/22 09:00 12/06/22 09:48 Thiamine 100 Mg Tablet PO 100 mg DAILY TOAN Administration PFSH Acute PFSH: Medical History History of intestine removal Hypertension Meatal stenosis Onychodystrophy Torus mandibularis Surgical History History of cataract surgery Family History Mother Cancer Father CAD (coronary artery disease) Social History Smoking and tobacco status: never smoked Second hand smoke exposure: No Alcohol intake: current Alcohol intake frequency: 0-2 Drinks per Day Substance/Drug Use: never Desire information about substance/drug rehabilitation?: No Adopted: No Caregiver/support person: No Lives independently: No Vitals/I&O/Wt Last Vital Signs Temp 98.0 F 12/06/22 04:00 Pulse 88 12/06/22 10:29 Resp 21 H 12/06/22 10:29 BP 153/107 12/06/22 10:29 Pulse Ox 97 12/06/22 04:00 O2 Del Method Room Air 12/06/22 04:00 12/05/22 12/06/22 12/06/22 22:59 06:59 14:59 Intake Total 1205 / 1205 900 / 2105 1000 / 1000 Output Total 200 / 200 400 / 600 Balance 1005 / 1005 500 / 1505 1000 / 1000 Weight last 48 hrs Weight 191 lb Physical Exam Narrative: General : Patient is well developed , no acute distress, oriented x3 Head : Normal cephalic, a-traumatic. Ears : Pinnae and external canal are normal. Hearing is normal. Eyes : PERRLA, Sclera and injection are normal. No conjunctival discharge. Nose : Mucous membranes are without erythema. Throat : buccal mucosa is normal, gums are without significant recession or hypertrophy. Lungs : Equal chest rise bilaterally, no use of accessory muscles, trachea is midline. Cor : Rate and rhythm are normal. Abdomen : Soft, ND, right upper quadrant tenderness, negative Florian sign, no g/r/m Extremities : No edema, no cyanosis or clubbing, dorsalis pedis pulses are present bilaterally, non-tender to palpation of calves. Upper extremities are normal bilaterally. Back : non-tender to palpation, no CVA tenderness. Neuro : CN II - XII intact, Upper and lower extremities have equal and full strength Data 12/06/22 01:00 12/06/22 01:00 Micro: Microbiology 12/05/22 18:27 Blood Culture - Preliminary Blood SPECIMEN COLLECTED 12/05/22 18:20 Blood Culture - Preliminary Blood SPECIMEN COLLECTED A&P Assessment and plan (1) Acute pancreatitis: (2) Alcoholism: (3) Elevated LFTs: Plan Normal saline at 200 mL/hr Clear liquid diet No acute surgical intervention Medical management per hospitalist Coding Level of Care Code 35201 Diagnoses Acute pancreatitis K85.90 Alcoholism F10.20 Elevated LFTs R79.89
[2022-12-06] MEDS: sodium chloride 0.9% 1,000 ML 200 ML IV ×3 (11:05→23:36)
--- NOTE | 2022-12-06 13:34 | PM.PN ---
Vitals/I&O/Wt Last Vital Signs Temp 98.6 F 12/06/22 11:17 Pulse 91 12/06/22 12:00 Resp 18 12/06/22 11:17 BP 155/107 12/06/22 11:17 Pulse Ox 97 12/06/22 04:00 O2 Del Method Room Air 12/06/22 04:00 12/05/22 12/06/22 12/06/22 22:59 06:59 14:59 Intake Total 1205 / 1205 900 / 2105 1052 / 1052 Output Total 200 / 200 400 / 600 Balance 1005 / 1005 500 / 1505 1052 / 1052 Weight last 48 hrs Weight 86.636 kg Physical Exam Const: COMMON NORMALS: no acute distress and patient oriented x3 Resp: COMMON NORMALS: normal respiratory effort, No retractions, No use of accessory muscles and clear to auscultation bilaterally AUSCULTATION: clear to auscultation bilaterally Cardio: COMMON NORMALS: regular rate, regular rhythm, S1 normal heart sound present and S2 normal heart sound present RATE: regular rate RHYTHM: regular rhythm HEART SOUNDS: S1 normal heart sound present and S2 normal heart sound present GI: COMMON NORMALS: Normal to inspection, nondistended, normoactive bowel sounds present OTHER: Has some epigastric and right upper quadrant tenderness Neuro: COMMON NORMALS: patient oriented x3 Psych: COMMON NORMALS: mental status grossly normal Data 12/06/22 01:00 12/06/22 01:00 Micro: Microbiology 12/05/22 18:27 Blood Culture - Preliminary Blood SPECIMEN COLLECTED 12/05/22 18:20 Blood Culture - Preliminary Blood SPECIMEN COLLECTED A&P Assessment and plan (1) Right upper quadrant abdominal tenderness: (2) Acute renal failure: Qualifiers: Acute renal failure type: unspecified Qualified Code(s): N17.9 - Acute kidney failure, unspecified (3) Elevated liver enzymes: (4) Hypomagnesemia: (5) Hypercalcemia: (6) Hypokalemia: (7) Acute cholecystitis: (8) Acute pancreatitis: (9) Dehydration: (10) Intractable nausea and vomiting: (11) Alcoholism: (12) Goals of care, counseling/discussion: Plan Acute hypomagnesemia -Likely secondary to dehydration -1.7 Hypokalemia -Resolved History of alcoholism -[facility] protocol Acute cholecystitis Ultrasound Liver:? Diffuse increased echogenicity is seen consistent with steatosis.? No masses. The liver span is 17 cm.? There is a circumscribed cyst in the left hepatic lobe 1.2 cm x 1.2 cm x 1 cm Gallbladder: Normal. No gallstones. There is no gallbladder wall thickening. Biliary ducts: Normal. No stones. No dilation.? CBD 3.6 mm Pancreas: Visualized pancreas is unremarkable. Right kidney: Normal. No mass. No hydronephrosis.? 11.9 cm x 5.5 cm x [address] scan 1.? Trace edema in the pancreatic head.Correlation for acute pancreatitis and pancreatic enzymes. 2.? Small amount of increased attenuation in the gallbladder suspicious for gallbladder sludge. This can be further evaluated with ultrasound. 3.? Hepatomegaly with diffuse fatty infiltration liver. 4.? No hydronephrosis in either kidney. No obstructing renal or ureteral calculi. 5.? Sigmoid diverticulosis. No evidence of acute diverticulitis. 6.? Prior sigmoid anastomosis. 7.? Small fat-containing umbilical and supraumbilical hernias. Plan -Clinically he has exquisite right upper quadrant tenderness -Keep n.p.o. -IV hydration -Pain control morphine -Zosyn for antibiotic coverage -General surgery consulted by ER Acute pancreatitis -Does have lipase elevation, CT showing trace edema in pancreatic head -Does have epigastric tenderness -As above n.p.o., IV fluids, pain control, Zosyn, general surgery consulted by ER Intractable nausea and vomiting, Zofran Hypercalcemia, resolved Acute kidney injury, IV hydration likely secondary intractable nausea, vomiting, monitor urine output monitor creatinine Goals of care discussion, patient would like to be a full code however he does not want to be kept on life-sustaining measures for the rest of his life if the likelihood of meaningful recovery is unlikely he he would like all life-sustaining measures to be stopped Lovenox for DVT prophylaxis Protonix for GI prophylaxis Spoke to general surgery Spoke to patient Spoke to nursing staff Plan today IV fluids, pain control, antibiotic therapy, spoke to general surgery Attestations Medical Necessity Statement*: Patient requires hospitalization r acute hypomagnesemia, hypokalemia, cholecystitis, pancreatitis, tractable nausea vomiting Diagnoses Right upper quadrant abdominal tenderness R10.811 Acute renal failure N17.9 Acute renal failure type: unspecified Elevated liver enzymes R74.8 Hypomagnesemia E83.42 Hypercalcemia E83.52 Hypokalemia E87.6 Acute cholecystitis K81.0 Acute pancreatitis K85.90 Dehydration E86.0 Intractable nausea and vomiting R11.2 Alcoholism F10.20 Goals of care, counseling/discussion Z71.89
[2022-12-06] MEDS: ondansetron 2 mg/ML SDV 2 mL 4 MG IVP (18:39)
[2022-12-06] MEDS: morphine 4 mg/mL SDV 1 mL 2 MG IVP ×2 (18:40→22:47)
[2022-12-07] VITALS (25 sets, daily range): BP systolic 145–175; BP diastolic 89–134; PULSE 81–95; RESP 12–22; TEMP 36.8–37; O2SAT 91–98
[2022-12-07] MEDS: piperacillin-tazobactam 3.375 GM in sodium chloride 0.9% (plus) 50 ML IV ×2 (03:08→10:27)
[2022-12-07 04:32] LABS: Basophils # 0.1 10^3/uL (0.0-0.1); Basophils % 1.3 %; Eosinophils # 0.2 10^3/uL (0.0-0.8); Eosinophils % 5.7 %; Hematocrit 33.9 % (42.0-52.0); Hemoglobin 11.1 g/dL (11.7-16.6); Lymphocytes # 0.5 10^3/uL (0.8-4.8); Lymphocytes % 12.8 %; Mean Corpuscular HGB Conc 32.7 g/dL (30.0-36.0); Mean Corpuscular Hemoglobin 33.8 pg (28.0-34.0); Mean Corpuscular Volume 103.4 fl (80-94); Mean Platelet Volume 10.6 fL (7.4-10.4); Monocytes # 0.7 10^3/uL (0.2-0.9); Monocytes % 18.5 %; Neutrophils # 2.35 10^3/uL (1.8-7.7); Neutrophils % 61.2 %; Nucleated Red Blood Cells % 0 %; Platelet Count 158 10^3/cmm (130-400); Red Blood Count 3.28 10^6/uL (4.1-5.3); Red Cell Distribution Width 12.3 % (12.1-15.1); White Blood Count 3.8 10^3/uL (4.0-10.0)
[2022-12-07] MEDS: sodium chloride 0.9% 1,000 ML 200 ML IV (04:41)
[2022-12-07 04:56] LABS: Alanine Aminotransferase 68 U/L (0-41); Albumin Level 3.5 g/dL (3.5-5.2); Alkaline Phosphatase 56 U/L (40-130); Anion Gap 16.4 (5-19); Aspartate Amino Transferase 47 U/L (0-40); Blood Urea Nitrogen 22 mg/dL (8-23); Calcium 8.8 mg/dL (8.5-10.5); Carbon Dioxide 24 mmol/L (22-29); Chloride 104 mmol/L (98-107); Globulin 2.4 g/dL (1.3-4.6); Glucose 85 mg/dL (65-115); Magnesium 1.5 mg/dL (1.7-2.3); Osmolality Calculated 295 mOsm/kg (285-295); Phosphorus 3.5 mg/dL (2.5-4.5); Potassium 3.4 mmol/L (3.5-5.1); Sodium 141 mmol/L (136-145); Total Bilirubin 0.7 mg/dL (0.15-1.2); Total Protein 5.9 g/dL (6.6-8.7)
[2022-12-07] MEDS: pantoprazole 40 mg SDV IVP ×2 (06:05→18:14)
--- NOTE | 2022-12-07 08:11 | USR_ITS ---
PROCEDURE INFORMATION: Exam: US Duplex Artery and Vein of the Abdominal and/or Reproductive Organs, Complete Kidneys Exam date and time: 12/07/2022 11:36 AM Age: 62 years old Clinical indication: Abnormal findings; Abnormal lab test; Other: Mikey TECHNIQUE: Imaging protocol: Real-time duplex ultrasound scan of the arterial and venous flow with color Doppler flow and spectral waveform analysis with image documentation. Complete duplex exam focused on the kidneys. Duplex exam was performed to evaluate for vascular conditions. COMPARISON: US abdomen limited [id number] 12/05/2022 4:43 PM FINDINGS: Right kidney: Normal. No hydronephrosis. No masses. Right renal artery: Normal duplex of the renal artery. Duplex waveforms are within normal limits. No hemodynamically significant stenosis. Right interlobar/arcuate arteries: Resistive indices range between 0.69 and 0.74. Right renal vein: Patent Left kidney: Normal. No hydronephrosis. No masses. Left renal artery: Normal duplex of the renal artery. Duplex waveforms are within normal limits. No hemodynamically significant stenosis. Left interlobar/arcuate arteries: Resistive indices range between 0.68 and 0.77. Left renal vein: Patent US/CV renal doppler [id number] IMPRESSION: Normal kidneys. No hemodynamically significant stenosis.
--- NOTE | 2022-12-07 08:11 | CTR_ITS ---
PROCEDURE INFORMATION: Exam: CT Head Without Contrast Exam date and time: 12/07/2022 11:11 AM Age: 62 years old Clinical indication: Injury or trauma; Fall; Blunt trauma (contusions or hematomas) TECHNIQUE: Imaging protocol: Computed tomography of the head without contrast. Radiation optimization: All CT scans at this facility use at least one of these dose optimization techniques: automated exposure control; mA and/or kV adjustment per patient size (includes targeted exams where dose is matched to clinical indication); or iterative reconstruction. REPORTING DATA: Count of CT and Cardiac NM exams in prior 12 months: This patient has received [address] and 0 known cardiac nuclear medicine studies in the 12 months prior to the current study. COMPARISON: No relevant prior studies available. RADIATION DOSE METRICS: Total DLP (mGy-cm): 1201.18 FINDINGS: Brain: There is no acute intracranial hemorrhage. There is lucency in the cerebral white matter, likely microvascular disease although non-specific. No evidence of mass. There is no mass effect or midline shift. Khan white differentiation is intact. There are no extra-axial fluid collections. Cerebral ventricles: The ventricles and sulci are enlarged, consistent with volume loss / atrophy. No hydrocephalus. Paranasal sinuses: Visualized sinuses are unremarkable. No fluid levels. Mastoid air cells: No significant mastoid effusion. Bones/joints: No acute fracture. Soft tissues: Unremarkable as visualized. Vasculature: There is vascular calcification. CT/CT head wo con* [id number] IMPRESSION: 1. No evidence of acute intracranial abnormality. No evidence of acute infarction, hemorrhage, or mass. 2. Atrophy and microvascular disease.
[2022-12-07] MEDS: multivitamin therapeutic Tablet 1 TAB PO (09:19)
[2022-12-07] MEDS: metoprolol succinate ER (24 HR) 100 mg Tablet PO (09:19)
[2022-12-07] MEDS: tamsulosin 0.4 mg Capsule PO (09:19)
[2022-12-07] MEDS: folic acid 1 mg Tablet PO (09:19)
[2022-12-07] MEDS: thiamine 100 mg Tablet PO (09:19)
[2022-12-07] MEDS: amlodipine 5 mg Tablet 10 MG PO (09:20)
--- NOTE | 2022-12-07 10:00 | PC.NURSE ---
received verbal order per hospitalist to start holt catheter pt has a mild bleed in his penis area, pink tinged. no gross or heavy bleeding. received verbal order from doc to start a holt catheter for this.
[2022-12-07 10:01] LABS: Creatine Phosphokinase 45 U/L (39-308)
[2022-12-07 10:16] LABS: Vitamin B12 780 pg/mL (232-1245)
[2022-12-07 10:24] LABS: Folate Level 13.3 ng/mL (4.5-32.2)
[2022-12-07] MEDS: sodium chloride 0.9% 1,000 ML 150 ML IV ×3 (10:27→21:07)
[2022-12-07] MEDS: magnesium sulfate premix 2 GM/50 ML PIGGYBACK IV (10:28)
--- NOTE | 2022-12-07 11:00 | PM.CONSULT ---
Providers/Reason For Consult Consulting Physician/Specialty*: Zaira Walker DO, telenephrology Reason for Consult*: Acute kidney injury Requesting Physician: Mendel Ny MD Attending Physician: Mendel Ny MD Primary Care Provider: Annamaria Lock MD History of Present Illness History of Present Illness Aaron Mcintosh is a 62 year old male admitted to hospital with abdominal pain and acute kidney injury. Not improved after 2 days IVF hydration. States he had not taken ARB or Hctz in a few months. Had UTI in September, rx flomax, caused dizziness so he stopped it. Fell and hit head at home a couple of weeks ago, did not get evaluated. Reports infrequent use of NSAIDs,once or twice monthly for knee pain. + severe pain currently from holt. History of severe hypertension. Serum Cr 0.7 mg/dL in 2021 Review of Systems Card: Denies: chest pain or edema Resp: Denies: dyspnea : Reports: change in urine stream and other (pain from holt, reports flecks of blood in urine) Skin/Breast: Reports: other (no rash) Medications/Allergies Home Medications Medication Instructions Recorded Confirmed Last Taken Type multivitamin (Daily Multi-Vitamin 1 tab PO DAILY 08/28/20 12/05/22 12/05/22 History tablet) amlodipine 5 mg tablet 5 mg PO DAILY #30 tabs 10/24/21 12/05/22 Unknown Rx losartan 50 mg tablet 50 mg PO BID #30 tabs 10/24/21 12/05/22 Unknown Rx metoprolol succinate 100 mg 100 mg PO DAILY #30 tabs 10/24/21 12/05/22 Unknown Rx tablet,extended release 24 hr rosuvastatin 20 mg tablet (Crestor) 20 mg PO DAILY #30 tabs 11/05/21 12/05/22 Unknown Rx tramadol 50 mg tablet 50 mg PO BID PRN pain #10 tabs 06/13/22 12/05/22 Unknown Rx tamsulosin 0.4 mg capsule 0.4 mg PO DAILY #30 caps 09/17/22 12/05/22 12/05/22 Rx hydrochlorothiazide 12.5 mg tablet 12.5 mg PO DAILY #30 tabs 11/04/22 12/05/22 Unknown Rx Allergies Allergy/AdvReac Type Severity Reaction Status Date / Time levofloxacin [From Levaquin] Allergy Mild tendons Verified 09/18/22 13:18 hurt Current Medications Generic Name Dose Route Start Last Admin Trade Name Huangq PRN Reason Stop Dose Admin Amlodipine Besylate 10 mg 12/06/22 09:00 12/07/22 09:20 Amlodipine 5 Mg Tablet PO 10 mg DAILY TOAN Administration Enoxaparin Sodium 30 mg 12/05/22 20:00 12/06/22 20:48 Enoxaparin 30 Mg/0.3 Ml Syringe SUBCUT Not Given Q24H [facility] Folic Acid 1 mg 12/06/22 09:00 12/07/22 09:19 Folic Acid 1 Mg Tablet PO 1 mg DAILY TOAN Administration Piperacillin Sod/Tazobactam 50 mls @ 12.5 mls/hr 12/05/22 19:00 12/07/22 10:27 Sod 3.375 gm/ Sodium Chloride IV 12.5 mls/hr Q8H TOAN Administration Sodium Chloride 1,000 mls @ 150 mls/hr 12/06/22 10:45 12/07/22 10:27 Sodium Chloride 0.9% IV 150 mls/hr .Q6H40M TOAN Administration Lorazepam 2 mg 12/05/22 18:35 12/06/22 23:42 Lorazepam 2 Mg Tablet PO 2 mg Q4H PRN Administration WITHDRAWAL Protocol Lorazepam 2 mg 12/05/22 18:35 12/06/22 00:02 Lorazepam 2 Mg/Ml Inj 1 Ml IVP 2 mg PRN PRN Administration WITHDRAWAL Protocol Metoprolol Succinate 100 mg 12/06/22 09:00 12/07/22 09:19 Metoprolol Succinate Er (24 Hr) 100 Mg Tablet PO 100 mg DAILY TOAN Administration Morphine Sulfate 2 mg 12/05/22 18:35 12/06/22 22:47 Morphine 4 Mg/Ml Sdv 1 Ml IVP 2 mg Q4H PRN Administration SEVERE PAIN Multivitamins Therapeutic 1 tab 12/06/22 09:00 12/07/22 09:19 Multivitamin Therapeutic Tablet PO 1 tab DAILY TOAN Administration Ondansetron HCl 4 mg 12/05/22 18:35 12/06/22 18:39 Ondansetron 2 Mg/Ml Sdv 2 Ml IVP 4 mg Q8H PRN Administration vomiting, or N/V if npo Pantoprazole Sodium 40 mg 12/05/22 19:00 12/07/22 06:05 Pantoprazole 40 Mg Sdv IVP 40 mg Q12H TOAN Administration Tamsulosin HCl 0.4 mg 12/06/22 09:00 12/07/22 09:19 Tamsulosin 0.4 Mg Capsule PO 0.4 mg DAILY TOAN Administration Thiamine Mononitrate 100 mg 12/06/22 09:00 12/07/22 09:19 Thiamine 100 Mg Tablet PO 100 mg DAILY TOAN Administration PFSH Acute PFSH: Medical History History of intestine removal Hypertension Meatal stenosis Onychodystrophy Torus mandibularis Surgical History History of cataract surgery Family History Mother Cancer Father CAD (coronary artery disease) Social History Smoking and tobacco status: never smoked Second hand smoke exposure: No Alcohol intake: current Alcohol intake frequency: 0-2 Drinks per Day Substance/Drug Use: never Desire information about substance/drug rehabilitation?: No Adopted: No Caregiver/support person: No Lives independently: No Vitals/I&O/Wt Last Vital Signs Temp 98.6 F 12/07/22 08:00 Pulse 82 12/07/22 08:00 Resp 18 12/07/22 08:00 BP 145/99 12/07/22 08:00 Pulse Ox 92 12/07/22 08:00 O2 Del Method Room Air 12/07/22 08:00 12/06/22 12/07/22 12/07/22 22:59 06:59 14:59 Intake Total 1720 / 3372 2240 / 5612 1050 / 1050 Output Total 700 / 1200 500 / 1700 Balance 1020 / 2172 1740 / 3912 1050 / 1050 Weight last 48 hrs Weight 86.636 kg Physical Exam Const: COMMON NORMALS: no acute distress and alert Extremity: GENERAL: No edema Neuro: SENSORIUM/ORIENTATION: Yes alert Data 12/07/22 03:30 12/07/22 03:30 Other Labs: urinalysis, + ketones, + blood, 0-4 RBC/HPF, CK 45 Ca 8.8, alb 3.5, phos 3.5, Mg 1.5 Micro: Microbiology 12/05/22 18:27 Blood Culture - Preliminary Blood NEGATIVE TO DATE 12/05/22 18:20 Blood Culture - Preliminary Blood NEGATIVE TO DATE CT Abd/Pel: Radiologist's impression: No contrast: Adrenal glands are normal. No obstructing renal or ureteral calculi. Mild perinephric edema can be seen with renal insufficiency. No hydronephrosis. US: Radiologist's impression: Right kidney: Normal. No mass. No hydronephrosis.? 11.9 cm x 5.5 cm x 6.8 cm US Vascular: Radiologist's impression: Renal artery doppler 2020: Normal renal arterial Doppler flow velocities. ?Normal velocity ratios and indicis ?Normal kidney dimensions bilaterally. Other data: seen via telemedicine with assistance of RN at bedside. Verbal consent obtained A&P Assessment and plan (1) Acute kidney injury: Plan 1. Acute kidney injury, nonoliguric. Admitted with pancreatitis and cholecystitis. Possible prerenal/ATN. Last available lab results almost one year ago. Could also have CKD. Glomerulonephritis workup ordered. 2. Hypertension, severe based on history of requiring 4 meds and diuretic. No evidence of JULIO on prior renal artery doppler. Alcohol use likely contributing. 3. Hypokalemia, hypomagnesemia, replace. Order aldosterone/renin Rec: continue IVF hyration until able to take po well. remove holt. Consult Attestations Medical Necessity Statement: see above Time Spent in Patient Care: Greater than 35 minutes Coding Level of Care Code Acute Code for [facility] Diagnoses Acute kidney injury N17.9
--- NOTE | 2022-12-07 12:41 | P.PN_ITS ---
Subjective Subjective: Patient seen and examined. Tolerating clears. Reports his abdominal pain has improved Vitals/I&O/Wt Last Vital Signs Temp 98.6 F 12/07/22 08:00 Pulse 90 12/07/22 12:00 Resp 22 H 12/07/22 12:00 BP 165/99 12/07/22 12:00 Pulse Ox 91 12/07/22 12:00 O2 Del Method Room Air 12/07/22 08:00 12/06/22 12/07/22 12/07/22 22:59 06:59 14:59 Intake Total 1720 / 3372 2240 / 5612 1460 / 1460 Output Total 700 / 1200 500 / 1700 Balance 1020 / 2172 1740 / 3912 1460 / 1460 Weight last 48 hrs Weight 191 lb Physical Exam Narrative: General: No acute distress, awake alert and oriented x3 Abdomen: Soft, mildly distended, mild right upper quadrant tenderness, no guarding rebound or masses Urinary Catheter Management: Jeong: Cath Placed During This Visit: yes Urinary Catheter Date of Insertion: 12/07/22 Urinary Catheter Time of Insertion: 10:25 Data 12/07/22 03:30 12/07/22 03:30 Micro: Microbiology 12/05/22 18:27 Blood Culture - Preliminary Blood NEGATIVE TO DATE 12/05/22 18:20 Blood Culture - Preliminary Blood NEGATIVE TO DATE A&P Assessment and plan (1) Acute pancreatitis: (2) Alcoholism: (3) Elevated LFTs: Plan Normal saline at 150 mL/hr Full liquid diet No acute surgical intervention Medical management per hospitalist Attestations Medical Necessity Statement*: Per primary Coding Level of Care Code Acute Code for [facility] Diagnoses Acute pancreatitis K85.90 Alcoholism F10.20 Elevated LFTs R79.89
[2022-12-07] MEDS: LORazepam 2 mg Tablet PO (13:37)
[2022-12-07] MEDS: morphine 4 mg/mL SDV 1 mL 2 MG IVP ×2 (13:37→21:08)
[2022-12-07 13:38] LABS: Hepatitis C Virus Antibody Non-Reactive (Nonreactive)
[2022-12-07] MEDS: potassium chloride ER 20 mEq Tablet PO (13:40)
--- NOTE | 2022-12-07 14:00 | PC.NURSE ---
Pt refused his holt catheter that was just inserted as ordered. output in 700 ml in bag. pt has mild bleeding in tip of his penis but no hematuria in his urine bag. small mucous threads.
--- NOTE | 2022-12-07 15:34 | PM.PN ---
Subjective Subjective: Patient was seen this morning, he continues to complain of intermittent headaches, he fell roughly 2 weeks ago he is worried about it being related to that, no headache, blurry vision, this morning he tells me that he has had intermittent hematuria, no nausea, no vomiting, his abdominal pain is improving he is tolerating clear liquids, no fevers, no chills, denies seeing or hearing things that are not there, Vitals/I&O/Wt Last Vital Signs Temp 98.6 F 12/07/22 08:00 Pulse 90 12/07/22 12:00 Resp 20 H 12/07/22 13:37 BP 165/99 12/07/22 12:00 Pulse Ox 96 12/07/22 13:37 O2 Del Method Room Air 12/07/22 08:00 12/07/22 12/07/22 12/07/22 06:59 14:59 22:59 Intake Total 2240 / 5612 1510 / 1510 Output Total 500 / 1700 700 / 700 Balance 1740 / 3912 810 / 810 Physical Exam Const: COMMON NORMALS: no acute distress and patient oriented x3 Resp: COMMON NORMALS: normal respiratory effort, No retractions, No use of accessory muscles and clear to auscultation bilaterally AUSCULTATION: clear to auscultation bilaterally Cardio: COMMON NORMALS: regular rate, regular rhythm, S1 normal heart sound present and S2 normal heart sound present RATE: regular rate RHYTHM: regular rhythm HEART SOUNDS: S1 normal heart sound present and S2 normal heart sound present GI: COMMON NORMALS: Normal to inspection, nondistended, normoactive bowel sounds present and non-tender Extremity: COMMON NORMALS: no pedal edema Neuro: COMMON NORMALS: patient oriented x3 Psych: COMMON NORMALS: mental status grossly normal Urinary Catheter Management: Jeong: Cath Placed During This Visit: yes Urinary Catheter Date of Insertion: 12/07/22 Urinary Catheter Time of Insertion: 10:25 Data 12/07/22 03:30 12/07/22 03:30 Micro: Microbiology 12/05/22 18:27 Blood Culture - Preliminary Blood NEGATIVE TO DATE 12/05/22 18:20 Blood Culture - Preliminary Blood NEGATIVE TO DATE A&P Assessment and plan (1) Right upper quadrant abdominal tenderness: (2) Acute renal failure: Qualifiers: Acute renal failure type: unspecified Qualified Code(s): N17.9 - Acute kidney failure, unspecified (3) Elevated liver enzymes: (4) Hypomagnesemia: (5) Hypercalcemia: (6) Hypokalemia: (7) Acute cholecystitis: - No radiographic evidence of acute cholecystitis, on examination today no significant right upper quadrant tenderness. Zosyn (8) Acute pancreatitis: (9) Dehydration: (10) Intractable nausea and vomiting: (11) Alcoholism: (12) Goals of care, counseling/discussion: (13) Hematuria: (14) Acute kidney injury: Plan Acute hypomagnesemia -Likely secondary to dehydration - 1.5 we will replace Hypokalemia -We will replace p.o. History of alcoholism -[facility] protocol Acute pancreatitis Liver:? Diffuse increased echogenicity is seen consistent with steatosis.? No masses. The liver span is 17 cm.? There is a circumscribed cyst in the left hepatic lobe 1.2 cm x 1.2 cm x 1 cm Gallbladder: Normal. No gallstones. There is no gallbladder wall thickening. Biliary ducts: Normal. No stones. No dilation.? CBD 3.6 mm Pancreas: Visualized pancreas is unremarkable. Right kidney: Normal. No mass. No hydronephrosis.? 11.9 cm x 5.5 cm x [address] scan 1.? Trace edema in the pancreatic head.Correlation for acute pancreatitis and pancreatic enzymes. 2.? Small amount of increased attenuation in the gallbladder suspicious for gallbladder sludge. This can be further evaluated with ultrasound. 3.? Hepatomegaly with diffuse fatty infiltration liver. 4.? No hydronephrosis in either kidney. No obstructing renal or ureteral calculi. 5.? Sigmoid diverticulosis. No evidence of acute diverticulitis. 6.? Prior sigmoid anastomosis. 7.? Small fat-containing umbilical and supraumbilical hernias. Plan -Currently on -IV hydration -Pain control morphine -Zosyn for antibiotic coverage, as there are no significant concerns for acute cholecystitis, will stop Zosyn -General surgery consulted by ER Intractable nausea and vomiting, Zofran Hypercalcemia, resolved Acute kidney injury -Persists -He has been taking Augmentin at home, -Currently here on Zosyn -Possible penicillin related dress syndrome? -We will stop Zosyn -Nephrology consulted -Continue IV fluids -Urine studies -Renal ultrasound Goals of care discussion, patient would like to be a full code however he does not want to be kept on life-sustaining measures for the rest of his life if the likelihood of meaningful recovery is unlikely he he would like all life-sustaining measures to be stopped Lovenox for DVT prophylaxis Protonix for GI prophylaxis Spoke to general surgery Spoke to patient Spoke to nursing staff Spoke to nephrology Plan today IV fluids, pain control, stop Zosyn, CT of the head for his headache, renal ultrasound, consult nephrology Attestations Medical Necessity Statement*: Patient requires hospitalization for acute pancreatitis, now with acute kidney injury with persistently elevated creatinine Diagnoses Right upper quadrant abdominal tenderness R10.811 Acute renal failure N17.9 Acute renal failure type: unspecified Elevated liver enzymes R74.8 Hypomagnesemia E83.42 Hypercalcemia E83.52 Hypokalemia E87.6 Acute cholecystitis K81.0 Acute pancreatitis K85.90 Dehydration E86.0 Intractable nausea and vomiting R11.2 Alcoholism F10.20 Goals of care, counseling/discussion Z71.89 Hematuria R31.9 Acute kidney injury N17.9
[2022-12-07] MEDS: enoxaparin 30 mg/0.3 mL Syringe SUBCUT (21:08)
[2022-12-07] MEDS: LORazepam 2 mg/mL INJ 1 mL IVP ×2 (21:08→23:08)
--- NOTE | 2022-12-07 23:07 | PC.NURSE ---
Addendum entered by Mayela Madera RN 12/07/22 23:15: Blood pressure also elevated to 175/117. Hydralazine given as ordered and documented. Original Note: Patient very confused. Up wandering in room. Patient pulled IV tubing in two. Removed IV Catheter. New IV initiated to right upper arm. CIWA assessed. Medication administered as ordered.
[2022-12-07] MEDS: hyDRALAzine 20 mg/mL INJ 1 mL 10 MG IVP (23:12)
[2022-12-08] VITALS (25 sets, daily range): BP systolic 130–197; BP diastolic 94–122; PULSE 88–118; RESP 16–27; TEMP 36.7–36.8; O2SAT 83–97
--- NOTE | 2022-12-08 00:07 | PC.NURSE ---
This patient is a CIWA patient who is at day 3 no alcohol. His BP is 117/113 after a dose of Hydralazine 10mg IVP and Ativan 2mg IVP both given about an hour ago. Patient is super confused tonight. Talking nonsense. Informed Dr Torres of elevated BP. No orders received at this time.
[2022-12-08] MEDS: LORazepam 2 mg/mL INJ 1 mL IVP ×3 (00:17→10:00)
--- NOTE | 2022-12-08 00:25 | PC.NURSE ---
Informed Dr Torres of patient's CIWA and MD saldaña with dose of Ativan given per protocol.
--- NOTE | 2022-12-08 01:11 | PC.NURSE ---
Patient jumping and running to the bathroom frequently. Unable to use urinal due to lack of coordination. Patient remain very confused and anxious. Bed alarm in use. Will continue to monitor.
[2022-12-08] MEDS: sodium chloride 0.9% 1,000 ML 150 ML IV ×2 (02:18→09:18)
[2022-12-08] MEDS: hyDRALAzine 20 mg/mL INJ 1 mL 10 MG IVP ×2 (03:23→07:58)
[2022-12-08] MEDS: pantoprazole 40 mg SDV IVP ×2 (05:19→18:47)
[2022-12-08] MEDS: morphine 4 mg/mL SDV 1 mL 2 MG IVP (05:23)
--- NOTE | 2022-12-08 06:55 | PM.PN ---
Subjective Subjective: required IV ativan; awake, slightly lethargic, asking appropriate questions no urinary complaints after holt removed Vitals/I&O/Wt Last Vital Signs Temp 98.2 F 12/08/22 03:19 Pulse 88 12/08/22 00:02 Resp 18 12/08/22 05:23 BP 177/122 12/08/22 06:19 Pulse Ox 93 12/08/22 00:02 O2 Del Method Room Air 12/08/22 00:02 12/07/22 12/07/22 12/08/22 14:59 22:59 06:59 Intake Total 1510 / 1510 2693.5 / 4203.5 777.5 / 4981.0 Output Total 700 / 700 100 / 800 100 / 900 Balance 810 / 810 2593.5 / 3403.5 677.5 / 4081.0 Physical Exam Urinary Catheter Management: Holt: Cath Placed During This Visit: yes, but has since been removed by the nurse Reason for Continuing Indwelling Catheter: Decision to DC Catheter Urinary Catheter Date of Insertion: 12/07/22 Urinary Catheter Time of Insertion: 10:25 Date Urinary Catheter Removed: 12/07/22 Time Urinary Catheter Discontinued: 14:00 Data 12/08/22 08:19 12/08/22 08:19 Other Labs: Ca 8.8, ohos 3.5, Mg 1.5 LFTs better, albumin 3.5 US Vascular: Radiologist's impression: Normal kidneys. No hemodynamically significant stenosis. Other data: sen via telemedicine with assistance of RN at bedside A&P Assessment and plan (1) Acute kidney injury: Plan 1. Acute kidney injury, nonoliguric. Admitted with pancreatitis and cholecystitis. Possible prerenal/ATN. Last available lab results almost one year ago. Could also have CKD. Glomerulonephritis workup ordered. Renal function improved today 2. Hypertension, severe based on history of requiring 4 meds and diuretic. No evidence of JULIO on renal artery doppler. Alcohol use likely contributing. Add hydralazine, continue to hold ARB 3. Hypokalemia, hypomagnesemia, replace. aldosterone/renin pending Rec: continue IVF hyration until able to take po well. Attestations Medical Necessity Statement*: see above Time Spent in Patient Care: 16 - 35 minutes Coding Level of Care Code Acute Code for [facility] Diagnoses Acute kidney injury N17.9
[2022-12-08 08:41] LABS: Basophils # 0.1 10^3/uL (0.0-0.1); Eosinophils # 0.1 10^3/uL (0.0-0.8); Eosinophils % 1.9 %; Hematocrit 36.7 % (42.0-52.0); Lymphocytes # 0.4 10^3/uL (0.8-4.8); Lymphocytes % 5.8 %; Mean Corpuscular HGB Conc 32.7 g/dL (30.0-36.0); Mean Platelet Volume 10.5 fL (7.4-10.4); Monocytes % 14.1 %; Neutrophils # 5.35 10^3/uL (1.8-7.7); Neutrophils % 76.3 %; Nucleated Red Blood Cells % 0 %; Platelet Count 158 10^3/cmm (130-400); Red Blood Count 3.53 10^6/uL (4.1-5.3); Red Cell Distribution Width 12.6 % (12.1-15.1)
[2022-12-08 08:52] LABS: Blood Urea Nitrogen 16 mg/dL (8-23); Calcium 9.3 mg/dL (8.5-10.5); Carbon Dioxide 22 mmol/L (22-29); Chloride 106 mmol/L (98-107); Potassium 3.8 mmol/L (3.5-5.1); Sodium 145 mmol/L (136-145); Total Bilirubin 0.5 mg/dL (0.15-1.2)
[2022-12-08] MEDS: metoprolol succinate ER (24 HR) 100 mg Tablet PO (09:17)
[2022-12-08] MEDS: multivitamin therapeutic Tablet 1 TAB PO (09:17)
[2022-12-08] MEDS: hyDRALAzine 50 mg Tablet PO ×3 (09:17→21:57)
[2022-12-08] MEDS: magnesium oxide 400 mg tablet PO ×2 (09:17→18:47)
[2022-12-08] MEDS: amlodipine 5 mg Tablet 10 MG PO (09:17)
[2022-12-08] MEDS: tamsulosin 0.4 mg Capsule PO (09:17)
[2022-12-08] MEDS: folic acid 1 mg Tablet PO (09:17)
[2022-12-08] MEDS: thiamine 100 mg Tablet PO (09:17)
[2022-12-08 09:30] LABS: Alanine Aminotransferase 68 U/L (0-41); Albumin Level 4.1 g/dL (3.5-5.2); Alkaline Phosphatase 70 U/L (40-130); Anion Gap 21.9 (5-19); Aspartate Amino Transferase 48 U/L (0-40); Glomerular Filtration Rate 23.9 mL/min (90-130); Glucose 79 mg/dL (65-115); Magnesium 1.4 mg/dL (1.7-2.3); Osmolality Calculated 304 mOsm/kg (285-295); Phosphorus 3.7 mg/dL (2.5-4.5)
--- NOTE | 2022-12-08 09:33 | P.PN_ITS ---
Subjective Subjective: Patient seen and examined. Denies any abdominal pain nausea or emesis Vitals/I&O/Wt Last Vital Signs Temp 98.2 F 12/08/22 03:19 Pulse 88 12/08/22 00:02 Resp 18 12/08/22 05:23 BP 177/122 12/08/22 06:19 Pulse Ox 93 12/08/22 00:02 O2 Del Method Room Air 12/08/22 00:02 12/07/22 12/08/22 12/08/22 22:59 06:59 14:59 Intake Total 2693.5 / 4203.5 777.5 / 4981.0 1000 / 1000 Output Total 100 / 800 100 / 900 Balance 2593.5 / 3403.5 677.5 / 4081.0 1000 / 1000 Physical Exam Narrative: General: No acute distress, awake alert and oriented x3 Abdomen: Soft, mildly distended, nontender, no guarding rebound or masses Urinary Catheter Management: Jeong: Cath Placed During This Visit: yes, but has since been removed by the nurse Reason for Continuing Indwelling Catheter: Decision to DC Catheter Urinary Catheter Date of Insertion: 12/07/22 Urinary Catheter Time of Insertion: 10:25 Date Urinary Catheter Removed: 12/07/22 Time Urinary Catheter Discontinued: 14:00 Data 12/08/22 08:19 12/08/22 08:19 A&P Assessment and plan (1) Acute pancreatitis: (2) Alcoholism: (3) Elevated LFTs: Plan Pancreatitis resolved Regular diet No acute surgical intervention Medical management per hospitalist General surgery will sign off. Please reconsult if necessary Attestations Medical Necessity Statement*: Per primary Coding Level of Care Code Acute Code for [facility] Diagnoses Acute pancreatitis K85.90 Alcoholism F10.20 Elevated LFTs R79.89
--- NOTE | 2022-12-08 11:54 | PM.PN ---
Subjective Subjective: He had spoken with nephrology. Asking if there is any supplements that he can take to help his kidneys. Fears that he had overdid it with alcohol. Discussed with him abstention from alcohol due to pancreatitis. Discussed additional work-up being performed by nephrology. He states that he takes Sh[place] at home. As per nursing staff noted to be confused, pulled out several IVs. Vitals/I&O/Wt Last Vital Signs Temp 98.2 F 12/08/22 03:19 Pulse 88 12/08/22 00:02 Resp 18 12/08/22 05:23 BP 177/122 12/08/22 06:19 Pulse Ox 93 12/08/22 00:02 O2 Del Method Room Air 12/08/22 00:02 12/07/22 12/08/22 12/08/22 22:59 06:59 14:59 Intake Total 2693.5 / 4203.5 777.5 / 4981.0 1000 / 1000 Output Total 100 / 800 100 / 900 Balance 2593.5 / 3403.5 677.5 / 4081.0 1000 / 1000 Physical Exam Narrative: Sitting up at side of the bed. He is RN at bedside. Const: COMMON NORMALS: alert GENERAL APPEARANCE: cooperative ORIENTATION/CONSCIOUSNESS: Yes awake HENMT: COMMON NORMALS: oropharynx normal Neck/C-Spine: COMMON NORMALS: no JVD Resp: COMMON NORMALS: normal respiratory effort and clear to auscultation bilaterally AUSCULTATION: clear to auscultation bilaterally Cardio: COMMON NORMALS: no JVD, regular rhythm, S1 normal heart sound present, S2 normal heart sound present and No murmurs present (Cardio) RHYTHM: regular rhythm HEART SOUNDS: S1 normal heart sound present and S2 normal heart sound present GI: COMMON NORMALS: Normal to inspection, nondistended, normoactive bowel sounds present, Soft to palpation and non-tender PALPATION: Yes Soft to palpation Extremity: COMMON NORMALS: no joint enlargement and no pedal edema Neuro: COMMON NORMALS: moves all extremities SENSORIUM/ORIENTATION: Yes alert Skin: COMMON NORMALS: no rashes or lesions noted GENERAL SKIN EXAM: no rashes or lesions noted Urinary Catheter Management: Jeong: Cath Placed During This Visit: yes, but has since been removed by the nurse Reason for Continuing Indwelling Catheter: Decision to DC Catheter Urinary Catheter Date of Insertion: 12/07/22 Urinary Catheter Time of Insertion: 10:25 Date Urinary Catheter Removed: 12/07/22 Time Urinary Catheter Discontinued: 14:00 Data 12/08/22 08:19 12/08/22 08:19 A&P Assessment and plan (1) Right upper quadrant abdominal tenderness: (2) Acute renal failure: Qualifiers: Acute renal failure type: unspecified Qualified Code(s): N17.9 - Acute kidney failure, unspecified (3) Elevated liver enzymes: (4) Hypomagnesemia: (5) Hypercalcemia: (6) Hypokalemia: (7) Acute cholecystitis: - No radiographic evidence of acute cholecystitis, on examination today no significant right upper quadrant tenderness. Zosyn (8) Acute pancreatitis: (9) Dehydration: (10) Intractable nausea and vomiting: (11) Alcoholism: (12) Goals of care, counseling/discussion: (13) Hematuria: (14) Acute kidney injury: Plan Acute encephalopathy: Acute metabolic encephalopathy with delirium, due to withdrawal from alcohol. WA 14. Continue CIWA monitoring, needing close monitoring due to risk of severe withdrawal, benzodiazepine need with Ativan per CIWA. Continue supplements. Started on magnesium replacement. Follow-up magnesium level. Per discussion with his RN with confusion due to delirium removed multiple IVs. Requesting one-to-one sitter. Acute hypomagnesemia Started on oral replacement. Follow-up level. Hypokalemia -Received replacement. Follow-up chemistry. History of alcoholism -[facility] protocol Acute pancreatitis No abdominal pain. Diet is being advanced. As such we will decrease IV fluids rate. Follow-up lipase level. Per discussion with surgery EtOH induced pancreatitis. Encourage EtOH abstention. Liver:? Diffuse increased echogenicity is seen consistent with steatosis.? No masses. The liver span is 17 cm.? There is a circumscribed cyst in the left hepatic lobe 1.2 cm x 1.2 cm x 1 cm Gallbladder: Normal. No gallstones. There is no gallbladder wall thickening. Biliary ducts: Normal. No stones. No dilation.? CBD 3.6 mm Pancreas: Visualized pancreas is unremarkable. Right kidney: Normal. No mass. No hydronephrosis.? 11.9 cm x 5.5 cm x [address] scan 1.? Trace edema in the pancreatic head.Correlation for acute pancreatitis and pancreatic enzymes. 2.? Small amount of increased attenuation in the gallbladder suspicious for gallbladder sludge. This can be further evaluated with ultrasound. 3.? Hepatomegaly with diffuse fatty infiltration liver. 4.? No hydronephrosis in either kidney. No obstructing renal or ureteral calculi. 5.? Sigmoid diverticulosis. No evidence of acute diverticulitis. 6.? Prior sigmoid anastomosis. 7.? Small fat-containing umbilical and supraumbilical hernias. Surgery documentation appreciated. Intractable nausea and vomiting, Zofran Hypercalcemia, resolved Acute kidney injury Nephrology documentation appreciated. Pending further work-up. Continue IV hydration until increasing oral intake. Does state also has been taking [place] at home. At home also takes Pepcid. Discussed with him to stop. He is on pantoprazole. On Augmentin at home, was on Zosyn here, antibiotic discontinued. Reassess renal function. -Renal ultrasound appreciated. Normal kidneys. No renal artery stenosis. Mild posterior headache,: CT head appreciated. Atrophy and microvascular disease. No acute abnormality. Attestations Medical Necessity Statement*: Continue admission for assessment management of acute encephalopathy, delirium with alcohol withdrawal, treatment of acute kidney injury, acute pancreatitis. Diagnoses Right upper quadrant abdominal tenderness R10.811 Acute renal failure N17.9 Acute renal failure type: unspecified Elevated liver enzymes R74.8 Hypomagnesemia E83.42 Hypercalcemia E83.52 Hypokalemia E87.6 Acute cholecystitis K81.0 Acute pancreatitis K85.90 Dehydration E86.0 Intractable nausea and vomiting R11.2 Alcoholism F10.20 Goals of care, counseling/discussion Z71.89 Hematuria R31.9 Acute kidney injury N17.9
[2022-12-08] MEDS: enoxaparin 30 mg/0.3 mL Syringe SUBCUT (19:54)
[2022-12-08] MEDS: sodium chloride 0.9% 1,000 ML 100 ML IV (19:54)
[2022-12-08] MEDS: LORazepam 2 mg Tablet PO (21:57)
[2022-12-09] VITALS (26 sets, daily range): BP systolic 138–173; BP diastolic 96–110; PULSE 85–113; RESP 5–26; TEMP 36.8–37.2; O2SAT 93–97
[2022-12-09] MEDS: sodium chloride 0.9% 1,000 ML 100 ML IV ×2 (04:16→17:30)
[2022-12-09] MEDS: pantoprazole 40 mg SDV IVP ×2 (06:07→18:34)
[2022-12-09 06:23] LABS: Basophils % 0.7 %; Eosinophils # 0.2 10^3/uL (0.0-0.8); Eosinophils % 2.8 %; Hematocrit 35.9 % (42.0-52.0); Hemoglobin 11.6 g/dL (11.7-16.6); Lymphocytes # 0.5 10^3/uL (0.8-4.8); Lymphocytes % 9.3 %; Mean Corpuscular HGB Conc 32.3 g/dL (30.0-36.0); Mean Corpuscular Hemoglobin 33.4 pg (28.0-34.0); Mean Corpuscular Volume 103.5 fl (80-94); Mean Platelet Volume 10.7 fL (7.4-10.4); Monocytes # 0.9 10^3/uL (0.2-0.9); Neutrophils # 4.09 10^3/uL (1.8-7.7); Neutrophils % 70.3 %; Nucleated Red Blood Cells % 0 %; Platelet Count 154 10^3/cmm (130-400); Red Blood Count 3.47 10^6/uL (4.1-5.3); Red Cell Distribution Width 12.9 % (12.1-15.1); White Blood Count 5.8 10^3/uL (4.0-10.0)
[2022-12-09 06:53] LABS: Alanine Aminotransferase 54 U/L (0-41); Albumin Level 3.9 g/dL (3.5-5.2); Alkaline Phosphatase 64 U/L (40-130); Anion Gap 21.6 (5-19); Aspartate Amino Transferase 38 U/L (0-40); Blood Urea Nitrogen 15 mg/dL (8-23); Carbon Dioxide 22 mmol/L (22-29); Chloride 107 mmol/L (98-107); Glucose 81 mg/dL (65-115); Lipase 118 U/L (13-60); Magnesium 1.3 mg/dL (1.7-2.3); Osmolality Calculated 304 mOsm/kg (285-295); Potassium 3.6 mmol/L (3.5-5.1); Sodium 147 mmol/L (136-145); Total Bilirubin 0.6 mg/dL (0.15-1.2); Total Protein 6.9 g/dL (6.6-8.7)
[2022-12-09] MEDS: magnesium sulfate premix 2 GM/50 ML PIGGYBACK IV (09:42)
[2022-12-09] MEDS: tamsulosin 0.4 mg Capsule PO (09:43)
[2022-12-09] MEDS: magnesium oxide 400 mg tablet PO ×2 (09:43→17:30)
[2022-12-09] MEDS: multivitamin therapeutic Tablet 1 TAB PO (09:43)
[2022-12-09] MEDS: amlodipine 5 mg Tablet 10 MG PO (09:43)
[2022-12-09] MEDS: hyDRALAzine 50 mg Tablet PO ×3 (09:44→19:37)
[2022-12-09] MEDS: folic acid 1 mg Tablet PO (09:44)
[2022-12-09] MEDS: thiamine 100 mg Tablet PO (09:44)
[2022-12-09] MEDS: metoprolol succinate ER (24 HR) 100 mg Tablet PO (09:44)
--- NOTE | 2022-12-09 14:19 | PC.NURSE ---
have repeatedly reminded pt to use urinal so we can have accurate intake and output measurements.he insists on going in to the bathroom and often forgets to use urinal.
--- NOTE | 2022-12-09 15:03 | PM.PN ---
Subjective Subjective: no new complaints Medications: Reviewed: Yes Vitals/I&O/Wt Last Vital Signs Temp 98.2 F 12/09/22 10:05 Pulse 104 H 12/09/22 13:23 Resp 21 H 12/09/22 13:23 BP 167/110 12/09/22 13:23 Pulse Ox 94 12/09/22 13:23 O2 Del Method Room Air 12/09/22 13:23 12/09/22 12/09/22 12/09/22 06:59 14:59 22:59 Intake Total 1076.667 / 3556.667 410 / 410 Output Total 550 / 550 Balance 1076.667 / 3556.667 -140 / -140 Physical Exam Urinary Catheter Management: Jeong: Cath Placed During This Visit: yes, but has since been removed by the nurse Reason for Continuing Indwelling Catheter: Decision to DC Catheter Urinary Catheter Date of Insertion: 12/07/22 Urinary Catheter Time of Insertion: 10:25 Date Urinary Catheter Removed: 12/07/22 Time Urinary Catheter Discontinued: 14:00 Data 12/09/22 06:05 12/09/22 06:05 A&P Assessment and plan (1) Acute kidney injury: Plan 1. Acute kidney injury, nonoliguric. Admitted with pancreatitis and cholecystitis. Possible prerenal/ATN. Last available lab results almost one year ago. Could also have CKD. Glomerulonephritis workup ordered. Renal function improved today 2. Hypertension, severe based on history of requiring 4 meds and diuretic. No evidence of JULIO on renal artery doppler. Alcohol use likely contributing. Added hydralazine, continue to hold ARB 3. Hypokalemia, hypomagnesemia, replace. aldosterone/renin pending 4. Hypernatremia : mild , encourage po fluid intake , if not better , switch IVFs to 1/2 NS Rec: continue IVF hyration until able to take po well. Attestations Medical Necessity Statement*: per medicine Coding Level of Care Code Acute Code for Chg Fwd Diagnoses Acute kidney injury N17.9
[2022-12-09] MEDS: hyDRALAzine 20 mg/mL INJ 1 mL 10 MG IVP (16:56)
--- NOTE | 2022-12-09 17:57 | PC.NURSE ---
dr chua notified re:pt's elevated bp's.10 mg hydralazine given iv push for bp 172/108. bp now 165/108. dr chua notified.
[2022-12-09] MEDS: enoxaparin 30 mg/0.3 mL Syringe SUBCUT (19:35)
--- NOTE | 2022-12-09 21:24 | P.PN_ITS ---
Subjective Subjective: Today he is feeling much better. He is more alert, more responsive. Oriented x3. CIWA score appears to be improving. Medications: Reviewed: Yes Vitals/I&O/Wt Last Vital Signs Temp 98.2 F 12/09/22 20:00 Pulse 94 12/09/22 20:00 Resp 18 12/09/22 20:00 BP 170/109 12/09/22 20:00 Pulse Ox 97 12/09/22 20:00 O2 Del Method Room Air 12/09/22 20:00 12/09/22 12/09/22 12/09/22 06:59 14:59 22:59 Intake Total 1076.667 / 3556.667 1410 / 1410 1840 / 3250 Output Total 550 / 550 470 / 1020 Balance 1076.667 / 3556.667 860 / 860 1370 / 2230 Physical Exam Const: COMMON NORMALS: alert GENERAL APPEARANCE: cooperative ORIENTATION/CONSCIOUSNESS: Yes awake HENMT: COMMON NORMALS: oropharynx normal Neck/C-Spine: COMMON NORMALS: no JVD Resp: COMMON NORMALS: normal respiratory effort and clear to auscultation bilaterally AUSCULTATION: clear to auscultation bilaterally Cardio: COMMON NORMALS: no JVD, regular rhythm, S1 normal heart sound present, S2 normal heart sound present and No murmurs present (Cardio) RHYTHM: regular rhythm HEART SOUNDS: S1 normal heart sound present and S2 normal heart sound present GI: COMMON NORMALS: Normal to inspection, nondistended, normoactive bowel sounds present, Soft to palpation and non-tender PALPATION: Yes Soft to palpation Extremity: COMMON NORMALS: no joint enlargement and no pedal edema Neuro: COMMON NORMALS: moves all extremities SENSORIUM/ORIENTATION: Yes alert Skin: COMMON NORMALS: no rashes or lesions noted GENERAL SKIN EXAM: no rashes or lesions noted Urinary Catheter Management: Jeong: Cath Placed During This Visit: yes, but has since been removed by the nurse Reason for Continuing Indwelling Catheter: Decision to DC Catheter Urinary Catheter Date of Insertion: 12/07/22 Urinary Catheter Time of Insertion: 10:25 Date Urinary Catheter Removed: 12/07/22 Time Urinary Catheter Discontinued: 14:00 Data 12/09/22 06:05 12/09/22 06:05 A&P Assessment and plan (1) Right upper quadrant abdominal tenderness: (2) Acute renal failure: Qualifiers: Acute renal failure type: unspecified Qualified Code(s): N17.9 - Acute kidney failure, unspecified (3) Elevated liver enzymes: (4) Hypomagnesemia: (5) Hypercalcemia: (6) Hypokalemia: (7) Acute cholecystitis: - No radiographic evidence of acute cholecystitis, on examination today no significant right upper quadrant tenderness. Zosyn (8) Acute pancreatitis: (9) Dehydration: (10) Intractable nausea and vomiting: (11) Alcoholism: (12) Goals of care, counseling/discussion: (13) Hematuria: (14) Acute kidney injury: Plan Acute encephalopathy: Now appears to be improving. If continues to do well likely can discontinue one-to-one sitter. Continue vitamin supplements. Additional magnesium replacement. Follow-up magnesium level requested. Per discussion with his RN with confusion due to delirium removed multiple IVs. Acute hypomagnesemia, worse today magnesium 7.3. Given additional magnesium, recheck level. Started on oral replacement. Follow-up level. Hypokalemia -Received replacement. Follow-up chemistry. Hypertension: Difficult to treat, did not respond very well to hydralazine. He is eating and drinking. Held additional IV fluids for now History of alcoholism -[facility] protocol Acute pancreatitis No abdominal pain. Diet is being advanced. As such we will decrease IV fluids rate. Follow-up lipase level. Per discussion with surgery EtOH induced pancreatitis. Encourage EtOH abstention. Liver:? Diffuse increased echogenicity is seen consistent with steatosis.? No masses. The liver span is 17 cm.? There is a circumscribed cyst in the left hepatic lobe 1.2 cm x 1.2 cm x 1 cm Gallbladder: Normal. No gallstones. There is no gallbladder wall thickening. Biliary ducts: Normal. No stones. No dilation.? CBD 3.6 mm Pancreas: Visualized pancreas is unremarkable. Right kidney: Normal. No mass. No hydronephrosis.? 11.9 cm x 5.5 cm x 6.[address] scan 1.? Trace edema in the pancreatic head.Correlation for acute pancreatitis and pancreatic enzymes. 2.? Small amount of increased attenuation in the gallbladder suspicious for gallbladder sludge. This can be further evaluated with ultrasound. 3.? Hepatomegaly with diffuse fatty infiltration liver. 4.? No hydronephrosis in either kidney. No obstructing renal or ureteral calculi. 5.? Sigmoid diverticulosis. No evidence of acute diverticulitis. 6.? Prior sigmoid anastomosis. 7.? Small fat-containing umbilical and supraumbilical hernias. As per discussion with surgery they signed off. Intractable nausea and vomiting, Zofran Hypercalcemia, resolved Acute kidney injury Nephrology documentation reviewed. Pending further work-up. Does state also has been taking Shayla-[place] at home. Discussed with him to avoid. At home also takes Pepcid. Discussed with him to stop. He is on pantoprazole. On Augmentin at home, was on Zosyn here, antibiotic discontinued. Reassess renal function. -Renal ultrasound appreciated. Normal kidneys. No renal artery stenosis. Mild posterior headache,: Resolved. CT head appreciated. Atrophy and microvascular disease. No acute abnormality. Attestations Medical Necessity Statement*: Admission for assessment management of NICOLAS, resolving alcohol withdrawal. Diagnoses Right upper quadrant abdominal tenderness R10.811 Acute renal failure N17.9 Acute renal failure type: unspecified Elevated liver enzymes R74.8 Hypomagnesemia E83.42 Hypercalcemia E83.52 Hypokalemia E87.6 Acute cholecystitis K81.0 Acute pancreatitis K85.90 Dehydration E86.0 Intractable nausea and vomiting R11.2 Alcoholism F10.20 Goals of care, counseling/discussion Z71.89 Hematuria R31.9 Acute kidney injury N17.9
[2022-12-10] VITALS (7 sets, daily range): BP systolic 134–169; BP diastolic 79–109; PULSE 83–108; RESP 14–23; TEMP 36.8–37.3; O2SAT 94–100
[2022-12-10 04:00] LABS: Basophils % 0.8 %; Eosinophils # 0.2 10^3/uL (0.0-0.8); Eosinophils % 3.5 %; Hematocrit 35.2 % (42.0-52.0); Hemoglobin 12.1 g/dL (11.7-16.6); Lymphocytes # 0.6 10^3/uL (0.8-4.8); Lymphocytes % 12.8 %; Mean Corpuscular HGB Conc 34.4 g/dL (30.0-36.0); Mean Corpuscular Hemoglobin 34.7 pg (28.0-34.0); Mean Corpuscular Volume 100.9 fl (80-94); Mean Platelet Volume 10.5 fL (7.4-10.4); Monocytes # 1.1 10^3/uL (0.2-0.9); Monocytes % 22.4 %; Neutrophils # 2.83 10^3/uL (1.8-7.7); Neutrophils % 58.6 %; Nucleated Red Blood Cells % 0 %; Platelet Count 175 10^3/cmm (130-400); Red Blood Count 3.49 10^6/uL (4.1-5.3); Red Cell Distribution Width 12.8 % (12.1-15.1); White Blood Count 4.8 10^3/uL (4.0-10.0)
[2022-12-10 04:24] LABS: Alanine Aminotransferase 47 U/L (0-41); Alkaline Phosphatase 65 U/L (40-130); Aspartate Amino Transferase 34 U/L (0-40); Blood Urea Nitrogen 13 mg/dL (8-23); Calcium 9.1 mg/dL (8.5-10.5); Carbon Dioxide 27 mmol/L (22-29); Chloride 105 mmol/L (98-107); Globulin 2.9 g/dL (1.3-4.6); Glomerular Filtration Rate 38.2 mL/min (90-130); Glucose 104 mg/dL (65-115); Magnesium 1.4 mg/dL (1.7-2.3); Osmolality Calculated 300 mOsm/kg (285-295); Sodium 145 mmol/L (136-145); Total Bilirubin 0.5 mg/dL (0.15-1.2); Total Protein 6.9 g/dL (6.6-8.7)
[2022-12-10] MEDS: hyDRALAzine 20 mg/mL INJ 1 mL 10 MG IVP (04:27)
[2022-12-10] MEDS: pantoprazole 40 mg SDV IVP (05:50)
--- NOTE | 2022-12-10 08:51 | PC.NURSE ---
Pt asked for help being unplugged to use the restroom, after disconnecting pt this documentation writer told him that we needed to use the urinal to monitor his urine output, pt stated 'sorry im not pissing in a can.' and then proceeded to walk to the bathroom. Actual amount of output is unknown.
[2022-12-10] MEDS: metoprolol succinate ER (24 HR) 100 mg Tablet PO (09:02)
[2022-12-10] MEDS: amlodipine 5 mg Tablet 10 MG PO (09:02)
[2022-12-10] MEDS: tamsulosin 0.4 mg Capsule PO (09:02)
[2022-12-10] MEDS: multivitamin therapeutic Tablet 1 TAB PO (09:03)
[2022-12-10] MEDS: hyDRALAzine 50 mg Tablet PO (09:03)
[2022-12-10] MEDS: magnesium oxide 400 mg tablet PO (09:03)
[2022-12-10] MEDS: thiamine 100 mg Tablet PO (09:03)
[2022-12-10] MEDS: folic acid 1 mg Tablet PO (09:03)
[2022-12-10] MEDS: magnesium sulfate premix 2 GM/50 ML PIGGYBACK IV (09:06)
[2022-12-10 10:33] LABS: Anti-streptolysin O <50 IU/mL (<200)
[2022-12-10 10:39] LABS: CENTROMERE B ANTIBODY <1.0 NEG AI (<1.0 NEG); JO-1 ANTIBODY <1.0 NEG AI (<1.0 NEG); RNP ANTIBODY <1.0 NEG AI (<1.0 NEG); SCL-70 ANTIBODY <1.0 NEG AI (<1.0 NEG); SJOGREN'S ANTIBODY (SS-A) <1.0 NEG AI (<1.0 NEG); SM ANTIBODY <1.0 NEG AI (<1.0 NEG); SS-B <1.0 NEG AI (<1.0 NEG)
--- NOTE | 2022-12-10 11:53 | PM.DCS ---
Discharge Providers Date of Admission: 12/05/22 18:07 Date of Discharge: December 10, 2022 Attending Provider at Admission: Mendel Ny MD Attending Provider at Discharge: Uriel Leger Primary Care Provider: Annamaria Lock MD Diagnoses at Discharge Discharge Diagnosis (1) Right upper quadrant abdominal tenderness: Status: Acute (2) Acute renal failure: Status: Acute Qualifiers: Acute renal failure type: unspecified Qualified Code(s): N17.9 - Acute kidney failure, unspecified (3) Elevated liver enzymes: Status: Acute (4) Hypomagnesemia: Status: Acute (5) Hypercalcemia: Status: Acute (6) Hypokalemia: Status: Acute (7) Acute cholecystitis: Status: Acute (8) Acute pancreatitis: Status: Acute (9) Dehydration: Status: Acute (10) Intractable nausea and vomiting: Status: Acute (11) Alcoholism: Status: Acute (12) Goals of care, counseling/discussion: Status: Acute (13) Hematuria: Status: Acute (14) Acute kidney injury: Status: Acute Reason for Visit Reason for Visit: fall, head injury, Ash[facility] sent Hospital Course Hospital Course 62-year-old gentleman was admitted for assessment management presenting with nausea abdominal pain on presentation with finding of acute pancreatitis, initially with right upper quadrant pain as well concern for possible cholecystitis, possible sludge in gallbladder on CT, although ultrasound with normal gallbladder, no stones, no wall thickening. Was assessed by surgery, not found to have cholecystitis. Pancreatitis gradually improving in terms of symptoms. Received IV hydration, received electrolyte replacement for hypokalemia and hypomagnesemia. Initially hypercalcemia noted on presentation, but improved with IV hydration. Ionized calcium normal. On presentation with acute kidney injury, creatinine 3.2, received fluid challenge. No obvious cause. Does not use NSAIDs. Later on stated intermittently taking Shayla-[place]. Used to also take Pepcid. Was seen by nephrology. Additional work-up was sent, including glomerulonephritis work-up with autoimmune studies. His kidney function gradually is showing improvement, creatinine has come down to 1.8. As pending studies are not likely to be back for some time, as per discussion with nephrology suspicion for glomerulonephritis is low, however, please follow-up on lab results and he is also asked to follow-up with nephrology in 3 weeks for further assessment. During hospitalization he also developed alcohol withdrawal. Treated with benzodiazepines with Ativan with CIWA protocol. Started on replacement of thiamine, folic acid, multivitamin. Received magnesium supplementation. Alcohol withdrawal resolved. With alcohol also likely cause of his pancreatitis counseled on abstinence, states that he as of now stopped consumption of any alcohol. Offered options for rehabilitation, but declines. Please follow-up with him for continued abstinence. Magnesium potassium still on the low side, continue supplementation at discharge as his losartan for now is also stopped until renal function reaches a steady state. Please follow-up levels. Physical Exam Narrative: Awake, alert, keenly responsive. In good spirits. Asks to be discharged. Const: COMMON NORMALS: patient oriented x3 and alert GENERAL APPEARANCE: cooperative ORIENTATION/CONSCIOUSNESS: Yes awake HENMT: COMMON NORMALS: oropharynx normal Neck/C-Spine: COMMON NORMALS: no JVD Resp: COMMON NORMALS: normal respiratory effort and clear to auscultation bilaterally AUSCULTATION: clear to auscultation bilaterally Cardio: COMMON NORMALS: no JVD, regular rhythm, S1 normal heart sound present, S2 normal heart sound present and No murmurs present (Cardio) RHYTHM: regular rhythm HEART SOUNDS: S1 normal heart sound present and S2 normal heart sound present GI: COMMON NORMALS: Normal to inspection, nondistended, normoactive bowel sounds present, Soft to palpation and non-tender PALPATION: Yes Soft to palpation Extremity: COMMON NORMALS: no joint enlargement and no pedal edema Neuro: COMMON NORMALS: patient oriented x3 and moves all extremities SENSORIUM/ORIENTATION: Yes alert Skin: COMMON NORMALS: no rashes or lesions noted GENERAL SKIN EXAM: no rashes or lesions noted Urinary Catheter Management: Jeong: Cath Placed During This Visit: yes, but has since been removed by the nurse Reason for Continuing Indwelling Catheter: Decision to DC Catheter Urinary Catheter Date of Insertion: 12/07/22 Urinary Catheter Time of Insertion: 10:25 Date Urinary Catheter Removed: 12/07/22 Time Urinary Catheter Discontinued: 14:00 Discharge Data Studies Completed and Pending Completed Studies During Hospitalization Category Date Time Status CT abdomen pelvis wo con [id number] Stat Cat Scan 12/05/22 15:[address] head wo con* [id number] Routine Cat Scan 12/07/22 08:11 Completed CV renal doppler [id number] Routine Ultrasound 12/07/22 08:11 Completed US abdomen limited [id number] Stat Ultrasound 12/05/22 16:17 Completed Pending at discharge Category Date Time Status RAYRAY Profile Rheumatology Stat Lab 12/07/22 08:30 Results Aldosterone Routine Lab 12/08/22 08:19 Received Anti-Neutrophil Cytoplasmic AB Routine Lab 12/07/22 12:39 Received Blood Culture Stat Lab 12/05/22 18:27 Results Complete Blood Count w/Auto AM LABS Lab 12/11/22 04:00 Ordered Comprehensive Metabolic Panel AM LABS Lab 12/11/22 04:00 Ordered Glomerular Basement AB IGG Routine Lab 12/07/22 12:39 Received Magnesium AM LABS Lab 12/11/22 04:00 Ordered Plasma Renin Activity LC/MS/MS Routine Lab 12/08/22 08:19 Received Radiology Impressions Abdomen/Pelvis CT 12/05/22 15:05 IMPRESSION: 1. Trace edema in the pancreatic head.Correlation for acute pancreatitis and pancreatic enzymes. 2. Small amount of increased attenuation in the gallbladder suspicious for gallbladder sludge. This can be further evaluated with ultrasound. 3. Hepatomegaly with diffuse fatty infiltration liver. 4. No hydronephrosis in either kidney. No obstructing renal or ureteral calculi. 5. Sigmoid diverticulosis. No evidence of acute diverticulitis. 6. Prior sigmoid anastomosis. 7. Small fat-containing umbilical and supraumbilical hernias. Abdomen Ultrasound 12/05/22 16:17 IMPRESSION: 1. Hepatic steatosis 2. Benign cyst left hepatic lobe 3. Otherwise negative sonogram of the abdomen Head CT 12/07/22 08:11 IMPRESSION: 1. No evidence of acute intracranial abnormality. No evidence of acute infarction, hemorrhage, or mass. 2. Atrophy and microvascular disease. Renal Ultrasound 12/07/22 08:11 IMPRESSION: Normal kidneys. No hemodynamically significant stenosis. Laboratory Results WBC 4.8 10^3/uL (4.0-10.0) 12/10/22 03:05 RBC 3.49 10^6/uL (4.1-5.3) L 12/10/22 03:05 Hgb 12.1 g/dL (11.7-16.6) 12/10/22 03:05 Hct 35.2 % (42.0-52.0) L 12/10/22 03:05 MCV 100.9 fl (80-94) H 12/10/22 03:05 MCH 34.7 pg (28.0-34.0) H 12/10/22 03:05 MCHC 34.4 g/dL (30.0-36.0) D 12/10/22 03:05 RDW 12.8 % (12.1-15.1) 12/10/22 03:05 Plt Count 175 10^3/cmm (130-400) 12/10/22 03:05 MPV 10.5 fL (7.4-10.4) H 12/10/22 03:05 Neut % (Auto) 58.6 % 12/10/22 03:05 Lymph % (Auto) 12.8 % 12/10/22 03:05 Moore % (Auto) 22.4 % 12/10/22 03:05 Eos % (Auto) 3.5 % 12/10/22 03:05 Baso % (Auto) 0.8 % 12/10/22 03:05 Neut # (Auto) 2.83 10^3/uL (1.8-7.7) 12/10/22 03:05 Lymph # (Auto) 0.6 10^3/uL (0.8-4.8) L 12/10/22 03:05 Moore # (Auto) 1.1 10^3/uL (0.2-0.9) H 12/10/22 03:05 Eos # (Auto) 0.2 10^3/uL (0.0-0.8) 12/10/22 03:05 Baso # (Auto) 0.0 10^3/uL (0.0-0.1) 12/10/22 03:05 Nucleated RBC % (auto) 0 % 12/10/22 03:05 Nucleated RBCs # 0.0 /100WBC 12/10/22 03:05 Sodium 145 mmol/L (136-145) 12/10/22 03:05 Potassium 3.0 mmol/L (3.5-5.1) L 12/10/22 03:05 Chloride 105 mmol/L (98-107) 12/10/22 03:05 Carbon Dioxide 27 mmol/L (22-29) 12/10/22 03:05 Anion Gap 16.0 (5-19) 12/10/22 03:05 BUN 13 mg/dL (8-23) 12/10/22 03:05 Creatinine 1.8 mg/dL (0.7-1.2) H 12/10/22 03:05 GFR Calculation 38.2 mL/min (90-130) L 12/10/22 03:05 Glucose 104 mg/dL (65-115) 12/10/22 03:05 POC Glucose 73 mg/dL (70-110) 12/06/22 06:24 Estimat Average Glucose 105 12/05/22 18:20 Hemoglobin A1c 5.3 % (4.0-6.0) 12/05/22 18:20 Calculated Osmolality 300 mOsm/kg (285-295) H 12/10/22 03:05 Lactic Acid 1.9 mmol/L (0.5-2.2) 12/05/22 18:20 Calcium 9.1 mg/dL (8.5-10.5) 12/10/22 03:05 Ionized Calcium [place] 1.3 mmol/L (1.1-1.4) 12/05/22 18:20 Phosphorus 3.7 mg/dL (2.5-4.5) 12/08/22 08:19 Magnesium 1.4 mg/dL (1.7-2.3) L 12/10/22 03:05 Total Bilirubin 0.5 mg/dL (0.15-1.2) 12/10/22 03:05 AST 34 U/L (0-40) 12/10/22 03:05 ALT 47 U/L (0-41) H 12/10/22 03:05 Alkaline Phosphatase 65 U/L (40-130) 12/10/22 03:05 Creatine Kinase 45 U/L (39-308) 12/07/22 08:30 Troponin T Baseline 33 ng/L (0-15) H 12/05/22 18:20 Troponin T 120 Minute 34.80 ng/L (0-15) H 12/05/22 20:19 Delta Troponin T 1.80 ABS# (0-10) 12/05/22 20:19 Troponin T Hi Sens 6Hr 36.94 ng/L (0-15) H 12/06/22 01:00 Troponin T Hi Sens 6Hr Delta 3.94 ng/L (0-12) 12/06/22 01:00 C-Reactive Protein 28.0 mg/L (0.0-4.9) H 12/05/22 18:20 Total Protein 6.9 g/dL (6.6-8.7) 12/10/22 03:05 Albumin 4.0 g/dL (3.5-5.2) 12/10/22 03:05 Globulin 2.9 g/dL (1.3-4.6) 12/10/22 03:05 Triglycerides 74 mg/dL (0-150) 12/05/22 18:20 Cholesterol 231 mg/dL (0-200) H 12/05/22 18:20 LDL Cholesterol, Calc 122 mg/dL (50-129) 12/05/22 18:20 HDL Cholesterol 94 mg/dL (60-100) 12/05/22 18:20 LDL/HDL Ratio 1.30 RATIO (0.00-3.22) 12/05/22 18:20 Cholesterol/HDL Ratio 2.46 mg/dL (1.0-5.00) 12/05/22 18:20 Lipase 118 U/L (13-60) H 12/09/22 06:05 Vitamin B12 780 pg/mL (232-1245) 12/07/22 08:30 Folate 13.3 ng/mL (4.5-32.2) 12/07/22 08:30 Procalcitonin 0.33 ng/mL (0-0.5) 12/05/22 18:20 TSH 0.55 uIU/mL (0.27-4.20) 12/05/22 18:20 Urine Color Colorless (Yellow) 12/05/22 22:20 Urine Appearance Clear (CLEAR) 12/05/22 22:20 Urine pH 5 (5-7) 12/05/22 22:20 Ur Specific [place] 1.005 (1.005-1.030) 12/05/22 22:20 Urine Protein Neg (Negative) 12/05/22 22:20 Urine Glucose (UA) Norm (Normal) 12/05/22 22:20 Urine Ketones 2+ (Negative) H 12/05/22 22:20 Urine Blood 3+ (Negative) H 12/05/22 22:20 Urine Nitrate Negative (Negative) 12/05/22 22:20 Urine Bilirubin Neg (Negative) 12/05/22 22:20 Urine Urobilinogen Norm mg/dL (Negative) 12/05/22 22:20 Ur Leukocyte Esterase Trace (Negative) H 12/05/22 22:20 Urine RBC 0-4 /hpf (0-2) H 12/05/22 22:20 Urine WBC 0-4 /hpf (0-5) H 12/05/22 22:20 Ur Squamous Epith Cells 0-4 /hpf (0-5) H 12/05/22 22:20 Amorphous Sediment Not Reportable 12/05/22 22:20 Urine Bacteria Trace /hpf (NONE) 12/05/22 22:20 MAXIMUS-1 Antibody <1.0 neg AI (<1.0 NEG) 12/07/22 08:30 SS-A Antibody <1.0 neg AI (<1.0 NEG) 12/07/22 08:30 SS-B Antibody <1.0 neg AI (<1.0 NEG) 12/07/22 08:30 Sm ([place]) Antibody <1.0 neg AI (<1.0 NEG) 12/07/22 08:30 STAMP MOUNTER Antibody <1.0 neg AI (<1.0 NEG) 12/07/22 08:30 Scl-70 Antibody <1.0 neg AI (<1.0 NEG) 12/07/22 08:30 Centromere B Antibody <1.0 neg AI (<1.0 NEG) 12/07/22 08:30 Hepatitis C Antibody Non-reactive (Nonreactive) 12/05/22 14:21 Anti-Streptolysin O Ab <50 IU/mL (<200) 12/07/22 08:30 Vitals Last Vital Signs Temp 98.2 F 12/10/22 04:00 Pulse 102 H 12/10/22 06:00 Resp 16 12/10/22 05:42 BP 147/85 12/10/22 05:42 Pulse Ox 97 12/10/22 04:00 O2 Del Method Room Air 12/10/22 04:00 Discharge Plan Discharge Patient Disposition: Home Condition: Stable Prescriptions: New folic acid 1 mg Tablet 1 mg PO DAILY Qty: 90 0RF potassium chloride 10 mEq capsule, extended release 10 meq PO DAILY 14 Days Qty: 14 0RF thiamine mononitrate (vit B1) [Vitamin B-1 (mononitrate)] 100 mg Tablet 100 mg PO DAILY Qty: 90 0RF magnesium oxide 400 mg (241.3 mg magnesium) Tablet 400 mg PO BID Qty: 60 0RF Continued multivitamin [Daily Multi-Vitamin] Tablet 1 tab PO DAILY metoprolol succinate 100 mg tablet extended release 24 hr 100 mg PO DAILY Qty: 30 5RF tramadol 50 mg tablet 50 mg PO BID PRN (Reason: pain) Qty: 10 0RF tamsulosin 0.4 mg capsule 0.4 mg PO DAILY Qty: 30 5RF rosuvastatin [Crestor] 20 mg tablet 20 mg PO DAILY Qty: 30 5RF Changed amlodipine 5 mg tablet 10 mg PO DAILY Qty: 60 5RF Discontinued losartan 50 mg tablet 50 mg PO BID Qty: 30 5RF hydrochlorothiazide 12.5 mg tablet 12.5 mg PO DAILY Qty: 30 5RF Discharge Orders: Discharge Order (Routine); Ordered 12/10/22 Ordered By: Uriel Leger Referrals: Nephrology [Provider Group] - 3 weeks (NICOLAS, pending glomerulonephritis work up) Annamaria Lock MD [Primary Care Provider] - 4-7 days Discharge Diet: Low Cholesterol Patient Instructions: Potassium Chloride (By mouth) (K-Dur, K-Tanisha, K-Tab, Mitul Mur), Thiamine (By mouth) ([facility] Vitamin B1, ReviewPro..., Folic Acid (By mouth) (FA-8, [place], Folacin-800, Methylfolate), Magnesium Oxide (By mouth) (Mag-Ox 400, [employer]..., Acute Kidney Injury (GEN), Hypokalemia (GEN), Alcohol Withdrawal (GEN), Hypomagnesemia (GEN), Alcohol Dependence (GEN), Opioid Safety Activity Restrictions/Additional Instructions: Abstain from any alcohol. Continued alcohol use will lead to recurrence of pancreatitis, risk of withdrawal, as well as risk of other problems including worsening hypomagnesemia, thiamine and other vitamin deficiency, dementia. Other complications. Please stop use of Shayla-[place] and Pepcid. Stop hydrochlorothiazide and hold losartan at this time until follow-up with primary provider and/or nephrology who may resume this medication. Continue magnesium and potassium supplementation. Please have your primary provider follow-up blood chemistry for potassium, kidney function as well as magnesium level. Also calcium level. Your please have your primary doctor follow-up your liver function. Follow-up with your primary doctor regarding gallbladder sludge. Follow-up with your primary doctor regarding fatty liver infiltration. Avoid any alcohol. Avoid NSAIDs. Maintain low-cholesterol diet. Discussed with your primary doctor further measures to help reverse fatty liver and prevent cirrhosis. Discharge Attestations Time Spent in Discharge Care*: greater than 30 min Quality Metrics Clinical Quality Measures [ No reported AMI, CVA or VTE this stay] Coding Level of Care Code Acute Code for Chg Fwd Diagnoses Right upper quadrant abdominal tenderness R10.811 Acute renal failure N17.9 Acute renal failure type: unspecified Elevated liver enzymes R74.8 Hypomagnesemia E83.42 Hypercalcemia E83.52 Hypokalemia E87.6 Acute cholecystitis K81.0 Acute pancreatitis K85.90 Dehydration E86.0 Intractable nausea and vomiting R11.2 Alcoholism F10.20 Goals of care, counseling/discussion Z71.89 Hematuria R31.9 Acute kidney injury N17.9
[2022-12-10] MEDS: potassium chloride ER 20 mEq Tablet PO (12:30)
[2022-12-10 13:24] LABS: COMPLEMENT, TOTAL (CH50) >60 U/mL (31-60)
--- NOTE | 2022-12-10 13:50 | PC.NURSE ---
discharge instructions given and explained.pt verb understanding of instructions.discharged at this time.friend to drive pt home.
[2022-12-10 15:54] LABS: ANA SCREEN, IFA NEGATIVE (NEGATIVE)
[2022-12-11 11:09] LABS: THYROID PEROXIDASE ANTIBODIES <1 IU/mL (<9)
[2022-12-11 13:39] LABS: DNA AB (DS) CRITHIDIA,IFA NEGATIVE (NEGATIVE)
[2022-12-12 10:55] LABS: COMPLEMENT COMPONENT C3C 118 mg/dL (82-185); COMPLEMENT COMPONENT C4C 25 mg/dL (15-53)
[2022-12-12 15:30] LABS: Glomerular Bsmt Membrane IGG <1.0 AI
[2022-12-13 10:05] LABS: ANCA Screen NEGATIVE (NEGATIVE)
[2022-12-16 13:00] LABS: Plasma Renin Activity LC/MS/MS 0.22 ng/mL/h (0.25-5.82)
== END 2022-12-10 13:51 | disposition home or self-care (01) | DRG 438 ==
LOC: ER 17:39 → CSU 18:07
PROVIDERS: Internal Medicine; Physician Assistant; Admitting Provider Family Medicine; Emergency Provider Emergency Medicine; PCP Family Medicine; Visit Provider Internal Medicine
DX: K85.20 Alcohol induced acute pancreatitis without necrosis or infection (principal); G93.41 Metabolic encephalopathy; F10.239 Alcohol dependence with withdrawal, unspecified; N17.9 Acute kidney failure, unspecified; E83.52 Hypercalcemia; Z79.891 Long term (current) use of opiate analgesic; I10 Essential (primary) hypertension; Z90.49 Acquired absence of other specified parts of digestive tract; E78.5 Hyperlipidemia, unspecified; E83.42 Hypomagnesemia; E87.6 Hypokalemia; E86.0 Dehydration; R51.9 Headache, unspecified; Z91.81 History of falling
CPT/HCPCS: 12345; 36415; 36416; 51702; 70450; 74176; 76705; 80053; 80061; 81001; 82088; 82330; 82550; 82607; 82746; 82962; 83036; 83520; 83605; 83690; 83735; 84100; 84145; 84244; 84443; 84484; 85025; 86036; 86060; 86140; 86160; 86162; 86235; 86255; 86376; 86803; 87040; 93005; 93975; 94664; 96365; 96372; 96375; 96376; 99285; C9113; J0360; J1650; J2060; J2270; J2405; J2543; J3411; J3475; J3480; J7030

== ENCOUNTER 2023-03-19 15:00 | Outpatient (CLI) | payer BC, SELFPAY ==
[2023-03-19 15:47] LABS: Basophils # 0.1 10^3/uL (0.0-0.1); Basophils % 0.9 %; Eosinophils # 0.3 10^3/uL (0.0-0.8); Eosinophils % 4.9 %; Hematocrit 40.3 % (37-53); Lymphocytes # 1.4 10^3/uL (0.8-4.8); Lymphocytes % 23.7 %; Mean Corpuscular HGB Conc 31.8 g/dL (30-55); Mean Corpuscular Hemoglobin 30.8 pg (27-33); Mean Corpuscular Volume 96.9 fl (82-101); Mean Platelet Volume 9.6 fL (7.4-10.4); Monocytes # 0.6 10^3/uL (0.2-0.9); Neutrophils % 59.2 %; Nucleated Red Blood Cells % 0 %; Platelet Count 245 10^3/cmm (157-399); Red Blood Count 4.16 10^6/uL (3.85-5.65); Red Cell Distribution Width 11.9 % (12.1-15.1); White Blood Count 5.74 10^3/uL (3.29-11.43)
[2023-03-19 16:11] LABS: Alanine Aminotransferase 12 U/L (0-41); Albumin Level 4.5 g/dL (3.5-5.2); Alkaline Phosphatase 52 U/L (40-130); Anion Gap 14.9 (5-19); Aspartate Amino Transferase 14 U/L (0-40); Blood Urea Nitrogen 25 mg/dL (8-23); Calcium 9.8 mg/dL (8.5-10.5); Carbon Dioxide 27 mmol/L (22-29); Chloride 104 mmol/L (98-107); Globulin 2.9 g/dL (1.3-4.6); Glomerular Filtration Rate 113.5 mL/min (90-130); Glucose 95 mg/dL (65-115); Osmolality Calculated 298 mOsm/kg (285-295); Potassium 3.9 mmol/L (3.5-5.1); Sodium 142 mmol/L (136-145); Total Bilirubin 0.2 mg/dL (0.15-1.2); Total Protein 7.4 g/dL (6.6-8.7)
== END 2023-03-19 15:01 | disposition home or self-care (01) ==
PROVIDERS: PCP Family Medicine; Visit Provider Family Medicine
DX: D64.9 Anemia, unspecified (principal); R79.89 Other specified abnormal findings of blood chemistry
CPT/HCPCS: 36415; 80053; 85025

== ENCOUNTER 2023-09-22 09:27 | Outpatient (CLI) | payer SELFPAY ==
[2023-09-22 10:15] LABS: HF Add Manual Diff No
[2023-09-22 10:16] LABS: Basophils # 0.1 10^3/uL (0.0-0.1); Eosinophils # 0.3 10^3/uL (0.0-0.8); Hematocrit 46.6 % (37-53); Lymphocytes # 1.2 10^3/uL (0.8-4.8); Lymphocytes % 22.2 %; Mean Corpuscular HGB Conc 32.4 g/dL (30-55); Mean Corpuscular Hemoglobin 29.8 pg (27-33); Mean Corpuscular Volume 91.9 fl (82-101); Mean Platelet Volume 9.4 fL (7.4-10.4); Monocytes # 0.5 10^3/uL (0.2-0.9); Monocytes % 9.4 %; Neutrophils # 3.22 10^3/uL (1.8-7.7); Nucleated Red Blood Cells % 0 %; Platelet Count 249 10^3/cmm (157-399); Red Blood Count 5.07 10^6/uL (3.85-5.65); Red Cell Distribution Width 13.1 % (12.1-15.1); White Blood Count 5.19 10^3/uL (3.29-11.43)
[2023-09-22 10:47] LABS: Estmated Average Glucose 111; Hemoglobin A1C 5.5 % (4.0-6.0)
[2023-09-22 17:38] LABS: 25 Hydroxy Vitamin D 42 ng/mL (30-100); Alanine Aminotransferase 15 U/L (0-41); Albumin Level 4.2 g/dL (3.5-5.2); Alkaline Phosphatase 68 U/L (40-130); Aspartate Amino Transferase 15 U/L (0-40); Blood Urea Nitrogen 16 mg/dL (8-23); Calcium 9.2 mg/dL (8.5-10.5); Carbon Dioxide 26 mmol/L (22-29); Chloride 103 mmol/L (98-107); Chol HDL Ratio 4.47 mg/dL (1.0-5.00); Cholesterol 210 mg/dL (0-200); Glomerular Filtration Rate 113.2 mL/min (90-130); Glucose 99 mg/dL (65-115); HDL Cholesterol 47 mg/dL (60-100); LDL Cholesterol Calculated 142 mg/dL (50-129); LDL HDL Ratio 3.02 RATIO (0.00-3.22); Osmolality Calculated 295 mOsm/kg (285-295); Sodium 142 mmol/L (136-145); Thyroid Stimulating Hormone 1.62 uIU/mL (0.27-4.20); Total Bilirubin 0.4 mg/dL (0.15-1.2); Total Protein 7.2 g/dL (6.6-8.7); Triglycerides 105 mg/dL (0-150)
== END 2023-09-22 09:28 | disposition home or self-care (01) ==
LOC: LAB 09:29
PROVIDERS: PCP Family Medicine; Visit Provider Dermatology
DX: Z01.89 Encounter for other specified special examinations (principal)

== ENCOUNTER → 2024-03-09 10:56 | Outpatient (BNVA) | payer MEDICARE, SELFPAY | PROVIDERS: PCP Family Medicine; Visit Provider Nurse Practitioner Family | DX: D22.5 Melanocytic nevi of trunk (principal); L81.4 Other melanin hyperpigmentation; L73.8 Other specified follicular disorders; L82.1 Other seborrheic keratosis; L21.8 Other seborrheic dermatitis; L57.8 Other skin changes due to chronic exposure to nonionizing radiation | CPT/HCPCS: 99214 ==

== ENCOUNTER 2024-04-20 13:03 | Outpatient (RCR) | payer MEDICARE, SELFPAY | END 2024-05-12 23:59 | disposition home or self-care (01) | LOC: SPT 13:03 | PROVIDERS: PCP Family Medicine; Visit Provider Family Medicine | DX: M54.9 Dorsalgia, unspecified (principal) | CPT/HCPCS: 97110; 97161; 97530 ==

== ENCOUNTER 2024-06-21 10:02 | Outpatient (CLI) | payer SELFPAY ==
[2024-06-21 10:33] LABS: HF Add Manual Diff No
[2024-06-21 10:37] LABS: Basophils # 0.1 10^3/uL (0.0-0.1); Basophils % 1.5 %; Eosinophils # 0.4 10^3/uL (0.0-0.8); Eosinophils % 6.1 %; Hematocrit 48.6 % (37-53); Lymphocytes # 0.9 10^3/uL (0.8-4.8); Lymphocytes % 13.6 %; Mean Corpuscular HGB Conc 32.5 g/dL (30-55); Mean Corpuscular Volume 98.4 fl (82-101); Mean Platelet Volume 9.5 fL (7.4-10.4); Monocytes # 0.9 10^3/uL (0.2-0.9); Monocytes % 14.2 %; Neutrophils # 4.15 10^3/uL (1.8-7.7); Neutrophils % 63.4 %; Nucleated Red Blood Cells % 0 %; Platelet Count 287 10^3/cmm (157-399); Red Blood Count 4.94 10^6/uL (3.85-5.65); Red Cell Distribution Width 12.8 % (12.1-15.1); White Blood Count 6.55 10^3/uL (3.29-11.43)
[2024-06-21 10:53] LABS: Estmated Average Glucose 108; Hemoglobin A1C 5.4 % (4.0-6.0)
[2024-06-21 11:22] LABS: 25 Hydroxy Vitamin D 41 ng/mL (30-100); Alanine Aminotransferase 23 U/L (0-41); Albumin Level 4.2 g/dL (3.5-5.2); Alkaline Phosphatase 89 U/L (40-130); Anion Gap 16.3 (5-19); Aspartate Amino Transferase 23 U/L (0-40); Blood Urea Nitrogen 7 mg/dL (8-23); Calcium 9.7 mg/dL (8.5-10.5); Carbon Dioxide 26 mmol/L (22-29); Chloride 103 mmol/L (98-107); Chol HDL Ratio 3.46 mg/dL (1.0-5.00); Cholesterol 235 mg/dL (0-200); Globulin 3.5 g/dL (1.3-4.6); Glomerular Filtration Rate 134.8 mL/min (90-130); Glucose 98 mg/dL (65-115); HDL Cholesterol 68 mg/dL (60-100); LDL Cholesterol Calculated 152 mg/dL (50-129); LDL HDL Ratio 2.24 RATIO (0.00-3.22); Osmolality Calculated 290 mOsm/kg (285-295); Potassium 4.3 mmol/L (3.5-5.1); Prostate Specific Antigen Scr 1.28 ng/mL (0-4); Sodium 141 mmol/L (136-145); Total Bilirubin 0.4 mg/dL (0.15-1.2); Total Protein 7.7 g/dL (6.6-8.7); Triglycerides 75 mg/dL (0-150)
== END 2024-06-21 10:03 | disposition home or self-care (01) ==
LOC: LAB 10:05
PROVIDERS: PCP Family Medicine; Visit Provider Dermatology
DX: Z13.9 Encounter for screening, unspecified (principal)
CPT/HCPCS: 36415

== ENCOUNTER 2024-09-16 11:30 | Observation (INO) | payer MEDICARE, SELFPAY ==
[2024-09-16] VITALS (31 sets, daily range): BP systolic 129–204; BP diastolic 85–140; PULSE 87–126; RESP 10–28; TEMP 36.7–36.9; O2SAT 93–99; BMI 28.8; BMI 29.6
--- NOTE | 2024-09-16 12:09 | XR_ITS ---
WS: [id number] XR chest 1V portable [id number] REASON FOR EXAM: dyspnea/cough FINDINGS: Moderate tortuosity and ectasia of the thoracic aorta. No significant cardiac enlargement. Lungs are hypoexpanded. Bilateral calcified granulomatous disease. No acute pulmonary parenchymal or pleural abnormality. Significant degenerative spondylosis in the thoracic spine. XR/XR chest 1V portable [id number] IMPRESSION: No acute chest abnormality.
--- NOTE | 2024-09-16 12:16 | ECG_ITS ---
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 Measurements Intervals Archer Rate: 122 P: 14 NH: 147 QRS: 79 QRSD: 98 T: 6 QT: 327 QTc: 468 Interpretive Statements SINUS TACHYCARDIA MODERATE ST DEPRESSION [0.05+ mV ST DEPRESSION] Compared to ECG 12/06/2022 00:05:23 ST (T wave) deviation now present Sinus rhythm no longer present Electronically Signed On 09-17-2024 18:02:13 [employer]INE OPERATOR by Manish Luo M.D. [email or web address]
--- NOTE | 2024-09-16 12:17 | W.ED.GENADLT ---
HPI - General Adult General: Chief complaint: Recheck/Abnormal Lab/Rx Stated complaint: abnormal labs sent by Kishan Time Seen by Provider: 09/16/24 12:08 History of Present Illness: 64-year-old male presents emergency room directed here by his primary care physician. He had been seen for an abscess on his back and come back for repacking when they were evaluating the patient noticed he was tachycardic and EKG was done there is some mild ST depression he is not having any chest pain or shortness of breath. He did not take any of his medications previously he had been on metoprolol he has been off of that for some time now he is only on losartan but he did not take any of the losartan today in addition to this he did take a caffeine tablet this morning. He is not having any chest pain or shortness of breath. Patient relates that he has a baseline mildly productive cough that is unchanged. He denies any abdominal pain denies any dysuria urgency or frequency Associated symptoms: Reports palpitations; Deny chest pain, dyspnea or rash Related Data Home Medications ?Medication ?Instructions ?Recorded ?Confirmed losartan 25 mg tablet 25 mg PO DAILY 09/16/24 09/16/24 multivitamin 1 tab PO DAILY 09/16/24 09/16/24 sulfamethoxazole 800 1 tab PO BID 09/16/24 09/16/24 mg-trimethoprim 160 mg tablet Allergies Allergy/AdvReac Type Severity Reaction Status Date / Time levofloxacin (From Levaquin) Allergy Mild tendons Verified 05/05/23 11:29 hurt Review of Systems Const: Denies: fever(s) or chills Card: Reports: palpitations; Denies: chest pain, edema, swelling of feet/ankles, dyspnea on exertion or orthopnea Resp: Denies: dyspnea GI: Denies: abdominal pain : Denies: dysuria, urinary frequency or urinary urgency Musc: Denies: neck pain or back pain Skin/Breast: Denies: rash PFSH ED PFSH: Medical History Acute pancreatitis Torus mandibularis Meatal stenosis Onychodystrophy Hypertension History of intestine removal Surgical History History of cataract surgery Family History Mother Cancer Father CAD (coronary artery disease) Social History Smoking and tobacco/nicotine status: never used tobacco/nicotine Second hand smoke exposure: No Alcohol intake: current Alcohol intake frequency: 0-2 Drinks per Day Substance/Drug Use: never Adopted: No Caregiver/support person: No Lives independently: No Physical Exam Const: GENERAL APPEARANCE: cooperative ORIENTATION/CONSCIOUSNESS: Yes awake, Yes oriented to person, Yes oriented to place and Yes oriented to time HENMT: COMMON NORMALS: normocephalic, atraumatic and hearing grossly normal bilaterally HEAD & SCALP: normocephalic and atraumatic Resp: COMMON NORMALS: normal respiratory effort, No retractions, No use of accessory muscles and clear to auscultation bilaterally AUSCULTATION: clear to auscultation bilaterally Cardio: COMMON NORMALS: regular rate, regular rhythm and No murmurs present (Cardio) RATE: regular rate RHYTHM: regular rhythm GI: COMMON NORMALS: Soft to palpation and No hepatosplenomegaly present AUSCULTATION: Yes normoactive bowel sounds PALPATION: Yes Soft to palpation, No Tenderness to palpation present (GI), No Guarding due to palpation present (GI) and Yes No hepatosplenomegaly present Back/Pelvis: OTHER: Examination of the area in the back inferior to the right scapula there is an incision there is packing in the wound there is no active drainage no localized erythema Extremity: COMMON NORMALS: normal to inspection, capillary refill normal, no clubbing, cyanosis or edema, no calf tenderness and no pedal edema Neuro: SENSORIUM/ORIENTATION: Yes oriented to person, Yes oriented to place and Yes oriented to time Skin: COMMON NORMALS: no rashes or lesions noted GENERAL SKIN EXAM: no rashes or lesions noted Course Vital Signs: Vital signs: Vital Signs Temperature 98.6 F 09/17/24 00:00 Pulse Rate 86 09/17/24 04:00 Respiratory Rate 15 09/17/24 04:00 Blood Pressure 132/62 09/17/24 03:15 Pulse Oximetry 95 09/17/24 04:00 Oxygen Delivery Me thod Room Air 09/17/24 00:00 [facility] - General Adult Medical Decision Making Despite multiple medications blood pressure maintains elevated. He does have elevated anion gap. He denies regular alcohol use, he does admit to occasional white wine. Suspect he may drink more than he gives credit for. Reports he used to drink much heavier. He is not having any diarrhea or vomiting. His white count was normal there is no evidence of acute infection at the site of the incision and drainage on his back. We did ultrasound his gallbladder there are some ST [place] consistent with the elevated liver enzymes no sign of acute cholecystitis. Repeat BMP anion gap has decreased. Had hoped to discharge patient home but despite medications he remains tachycardic and hypertensive he says his last drink was 2 days ago suspect he may be withdrawing. Medical Records I reviewed the patient's medical records. Lab Data I reviewed the patient's lab results. 09/16/24 12:44 09/16/24 17:54 Radiology Impressions Chest X-Ray 09/16/24 12:09 IMPRESSION: No acute chest abnormality. Gallbladder Ultrasound 09/16/24 15:12 IMPRESSION: Fatty infiltration of the liver, correlated with elevated liver enzymes would indicate steatohepatitis. Laboratory Results WBC 6.96 10^3/uL (3.29-11.43) 09/16/24 12:44 RBC 4.79 10^6/uL (3.85-5.65) 09/16/24 12:44 Hgb 15.10 g/dL (11.27-16.99) 09/16/24 12:44 Hct 46.0 % (37-53) 09/16/24 12:44 MCV 96.0 fl (82-101) 09/16/24 12:44 MCH 31.5 pg (27-33) 09/16/24 12:44 MCHC 32.8 g/dL (30-55) 09/16/24 12:44 RDW 13.7 % (12.1-15.1) 09/16/24 12:44 Plt Count 144 10^3/cmm (157-399) L 09/16/24 12:44 MPV 10.5 fL (7.4-10.4) H 09/16/24 12:44 Neut % (Auto) 76.3 % 09/16/24 12:44 Lymph % (Auto) 8.0 % 09/16/24 12:44 Beckham % (Auto) 14.9 % 09/16/24 12:44 Eos % (Auto) 0.0 % 09/16/24 12:44 Baso % (Auto) 0.4 % 09/16/24 12:44 Neut # (Auto) 5.30 10^3/uL (1.8-7.7) 09/16/24 12:44 Lymph # (Auto) 0.6 10^3/uL (0.8-4.8) L 09/16/24 12:44 Beckham # (Auto) 1.0 10^3/uL (0.2-0.9) H 09/16/24 12:44 Eos # (Auto) 0.0 10^3/uL (0.0-0.8) 09/16/24 12:44 Baso # (Auto) 0.0 10^3/uL (0.0-0.1) 09/16/24 12:44 Nucleated RBC % (auto) 0 % 09/16/24 12:44 Nucleated RBCs # 0.0 /100WBC 09/16/24 12:44 Sodium 140 mmol/L (136-145) 09/16/24 17:54 Potassium 3.2 mmol/L (3.5-5.1) L 09/16/24 17:54 Chloride 98 mmol/L (98-107) 09/16/24 17:54 Carbon Dioxide 24 mmol/L (22-29) 09/16/24 17:54 Anion Gap 21.2 (5-19) H 09/16/24 17:54 BUN 13 mg/dL (8-23) 09/16/24 17:54 Creatinine 0.6 mg/dL (0.7-1.2) L 09/16/24 17:54 GFR Calculation 134.8 mL/min (90-130) H 09/16/24 17:54 Glucose 105 mg/dL (65-115) 09/16/24 17:54 Estimat Average Glucose 114 09/16/24 12:44 Hemoglobin A1c 5.6 % (4.0-6.0) 09/16/24 12:44 Calculated Osmolality 290 mOsm/kg (285-295) 09/16/24 17:54 Calcium 9.4 mg/dL (8.5-10.5) 09/16/24 17:54 Total Bilirubin 0.7 mg/dL (0.15-1.2) 09/16/24 13:10 AST 145 U/L (0-40) H 09/16/24 13:10 ALT 133 U/L (0-41) H 09/16/24 13:10 Alkaline Phosphatase 93 U/L (40-130) 09/16/24 13:10 Troponin T Baseline 18 ng/L (0-15) H 09/16/24 13:10 Troponin T 120 Minute 18.82 ng/L (0-15) H 09/16/24 15:30 Delta Troponin T 0.82 ABS# (0-10) 09/16/24 15:30 NT-Pro-B Natriuret Pep 386 pg/mL (0-125) H 09/16/24 17:54 Total Protein 7.9 g/dL (6.6-8.7) 09/16/24 13:10 Albumin 4.6 g/dL (3.5-5.2) 09/16/24 13:10 Globulin 3.3 g/dL (1.3-4.6) 09/16/24 13:10 Triglycerides 81 mg/dL (0-150) 09/16/24 13:10 Cholesterol 291 mg/dL (0-200) H 09/16/24 13:10 LDL Cholesterol, Calc 158 mg/dL (50-129) H 09/16/24 13:10 HDL Cholesterol 117 mg/dL (60-100) H 09/16/24 13:10 LDL/HDL Ratio 1.35 RATIO (0.00-3.22) 09/16/24 13:10 Cholesterol/HDL Ratio 2.49 mg/dL (1.0-5.00) 09/16/24 13:10 Lipase 33 U/L (13-60) 09/16/24 13:10 TSH 1.19 uIU/mL (0.27-4.20) 09/16/24 13:10 Urine Color Yellow (Yellow) 09/16/24 15:12 Urine Appearance Clear (CLEAR) 09/16/24 15:12 Urine pH 6.0 (5-7) 09/16/24 15:12 Ur Specific [place] 1.024 (1.005-1.030) 09/16/24 15:12 Urine Protein 3+ (Negative) A 09/16/24 15:12 Urine Glucose (UA) Negative (Normal) 09/16/24 15:12 Urine Ketones 4+ (Negative) 09/16/24 15:12 Urine Blood Negative (Negative) 09/16/24 15:12 Urine Nitrate Negative (Negative) 09/16/24 15:12 Urine Bilirubin Negative (Negative) 09/16/24 15:12 Urine Urobilinogen 1.0 mg/dL (Negative) 09/16/24 15:12 Ur Leukocyte Esterase Negative (Negative) 09/16/24 15:12 Urine RBC 0-2 /hpf (0-2) 09/16/24 15:12 Urine WBC 0-5 /hpf (0-5) 09/16/24 15:12 Ur Squamous Epith Cells 0-5 /hpf (0-5) 09/16/24 15:12 Amorphous Sediment Not Reportable 09/16/24 15:12 Urine Bacteria None seen /hpf (NONE) 09/16/24 15:12 Hyaline Casts 1.21 /lpf 09/16/24 15:12 Ethyl Alcohol < 10 mg/dL (0-10) 09/16/24 13:10 All radiology interpretation(s) finalized by discharge Discharge Plan Discharge Patient Disposition: Admitted As Inpatient Admit Provider: Mendel Ny Clinical Impression: Hypertensive urgency, Elevated LFTs, Infected sebaceous cyst, Alcohol withdrawal Condition: Stable Coding Level of Care Code ED Director Report for Michael Fong
[2024-09-16 12:53] LABS: Basophils % 0.4 %; Lymphocytes # 0.6 10^3/uL (0.8-4.8); Mean Corpuscular HGB Conc 32.8 g/dL (30-55); Mean Corpuscular Hemoglobin 31.5 pg (27-33); Mean Platelet Volume 10.5 fL (7.4-10.4); Monocytes % 14.9 %; Neutrophils % 76.3 %; Nucleated Red Blood Cells % 0 %; Platelet Count 144 10^3/cmm (157-399); Red Blood Count 4.79 10^6/uL (3.85-5.65); Red Cell Distribution Width 13.7 % (12.1-15.1); White Blood Count 6.96 10^3/uL (3.29-11.43)
[2024-09-16] MEDS: hyDRALAzine 20 mg/mL INJ 1 mL 10 MG IVP ×2 (13:07→14:56)
[2024-09-16] MEDS: metoprolol tartrate 1 mg/1 mL SDV 5 mL 2.5 MG IVP (13:08)
[2024-09-16] MEDS: metoprolol tartrate 25 mg Tablet PO ×2 (13:09→21:03)
[2024-09-16 13:32] LABS: Alanine Aminotransferase 133 U/L (0-41); Albumin Level 4.6 g/dL (3.5-5.2); Alkaline Phosphatase 93 U/L (40-130); Anion Gap 25.3 (5-19); Aspartate Amino Transferase 145 U/L (0-40); Blood Urea Nitrogen 16 mg/dL (8-23); Calcium 10.1 mg/dL (8.5-10.5); Carbon Dioxide 22 mmol/L (22-29); Chloride 95 mmol/L (98-107); Creatinine Clr Calc Pharmacy 99.9519; Globulin 3.3 g/dL (1.3-4.6); Glomerular Filtration Rate 112.8 mL/min (90-130); Glucose 126 mg/dL (65-115); Osmolality Calculated 291 mOsm/kg (285-295); Potassium 3.3 mmol/L (3.5-5.1); Sodium 139 mmol/L (136-145); Total Bilirubin 0.7 mg/dL (0.15-1.2); Total Protein 7.9 g/dL (6.6-8.7)
[2024-09-16 13:34] LABS: Troponin(5th) Baseline 18 ng/L (0-15)
--- NOTE | 2024-09-16 14:01 | ECG_ITS ---
[facility] Test Date: 2024-09-16 Pat Name: Aaron Mcintosh Department: Room: Gender: Male Body Presser: : 1960 Requested By: Billy Avila Order Number: [id number] Chi MD: Manish Luo M.D. Measurements Intervals [place] Rate: 116 P: 46 CA: 155 QRS: -24 QRSD: 92 T: 41 QT: 328 QTc: 457 Interpretive Statements SINUS TACHYCARDIA POSSIBLE LEFT ATRIAL ENLARGEMENT [-0.1mV P-WAVE IN V1/V2] BORDERLINE LEFT AXIS DEVIATION [QRS AXIS < -20] ABNORMAL RHYTHM ECG Compared to ECG 09/16/2024 12:16:26 ST (T wave) deviation no longer present Electronically Signed On 09-17-2024 19:31:17 CLAIM ADJUSTER by Manish Luo M.D. [email or web address] [id number]
[2024-09-16] MEDS: labetalol 5 mg/mL SDV 20mL 10 MG IVP (14:54)
--- NOTE | 2024-09-16 15:12 | US_ITS ---
WS: [id number] ABDOMINAL ULTRASOUND LIMITED REASON FOR VISIT: Elevated liver enzymes TECHNIQUE: Grayscale and Doppler ultrasound examination of the abdomen. FINDINGS: Pancreas: The visualized pancreas demonstrated no mass, ductal dilatation, or calcification. Abdominal aorta and IVC: Normal. Liver: Liver measures 15.9 cm in length. Liver is mildly enlarged with homogeneous fatty infiltration. There is a well-defined central lucency with a thin wall in the anterior lower right lobe of the liver. Similar abnormality noted in the central left lobe of the liver. These both measure approximately 1.5 cm in diameter and are considered benign bile cysts of the liver. Gallbladder: No gallstones or gallbladder wall thickening. No pericholecystic fluid. No dilatation of the common bile duct. Right kidney: Right kidney measures 11.2 cm x 5.2 cm x 4.9 cm. There is no calculus, mass, or hydronephrosis. No ascites. US/US gall bladder [id number] IMPRESSION: Fatty infiltration of the liver, correlated with elevated liver enzymes would i ndicate steatohepatitis.
[2024-09-16 15:16] LABS: Bilirubin Urine Negative (Negative); Blood Urine Negative (Negative); Glucose Urine UA Negative (Normal); Ketones Urine 4+ (Negative); Leukocyte Esterase Urine Negative (Negative); Nitrate Urine Negative (Negative); Protein Urine 3+ (Negative); Specific Gravity, Urine 1.024 (1.005-1.030); Urine Appearance Clear (CLEAR); Urine Color Yellow (Yellow)
[2024-09-16 15:19] LABS: Add Urine Microscopic? YES; Bacteria Urine None Seen /hpf; Hyaline Casts Urine 1.21 /lpf; RBC Urine 0-2 /hpf (0-2); Squamous Epithelial Cell Urine 0-5 /hpf (0-5); WBC Urine 0-5 /hpf (0-5)
[2024-09-16 15:55] LABS: Troponin 5 2HR 18.82 ng/L (0-15); Troponin 5 2HR Delta 0.82 ABS# (0-10)
[2024-09-16 16:22] LABS: Lipase 33 U/L (13-60)
[2024-09-16] MEDS: sodium chloride 0.9% 1,000 ML 999 ML IV (16:53)
--- NOTE | 2024-09-16 17:29 | ECG_ITS ---
[facility] Date: 2024-09-16 Pat Name: Aaron Mcintosh Department: Room: Gender: Male Artist Representative: : 1960 Requested By: Billy Avila Order Number: [id number] Chi MD: Manish Luo M.D. Measurements Intervals [place] Rate: 102 P: -18 GA: 161 QRS: 113 QRSD: 93 T: -5 QT: 353 QTc: 461 Interpretive Statements SINUS TACHYCARDIA POSSIBLE LEFT ATRIAL ENLARGEMENT [-0.1mV P-WAVE IN V1/V2] POSSIBLE RIGHT VENTRICULAR HYPERTROPHY [SOME/ALL OF: PROMINENT R IN V1, LATE TRANSITION, RAD, JACK, SSS] ABNORMAL QRS-T ANGLE [QRS-T AXIS DIFFERENCE > 60] Compared to ECG 09/16/2024 14:01:09 No significant changes Electronically Signed On 09-17-2024 18:01:03 BINDER [employer] BOX BUILDER by Manish Luo M.D. [email or web address]
--- NOTE | 2024-09-16 17:58 | P.HP_ITS ---
Providers/Chief Complaint 2 Primary Care Provider: Annamaria Lock MD Chief Complaint: abnormal labs sent by Kishan History of Present Illness Aaron Mcintosh is a 64 year old male with a past medical history of alcoholism, pancreatitis, renal failure, hypertension, who presents [facility] from primary care physician's office due to elevated blood pressures and tachycardia. Patient has a boil on his back, T10 level that his primary care physician has been draining it, today after draining, patient's blood pressure was noted to be elevated, was tachycardic relatively asymptomatic was sent to [facility] for evaluation. He denies any chest pain, no palpitation no shortness of breath, no headache, blurry vision, no facial droop, no slurring of his words, no focal weakness, no paresthesias he has been given beta-blockers, Vasotec, hydralazine blood pressure continues to rebound, tachycardic, he has been placed on a Cardene drip. He does report history of alcoholism, but he is cut down drinking, his last drink was 2 days ago when he drinks white wine Review of Systems 2 Const: Denies: fever(s) or chills Card: Denies: chest pain Resp: Denies: dyspnea GI: Denies: abdominal pain : Denies: flank pain Medications/Allergies Home Medications ?Medication ?Instructions ?Recorded ?Confirmed ?Last Taken ?Type losartan 25 mg tablet 25 mg PO DAILY 09/16/2402/03 Unknown History multivitamin 1 tab PO DAILY 09/16/2402/03 Unknown History sulfamethoxazole 800 1 tab PO BID 09/16/24 Unknown History mg-trimethoprim 160 mg tablet Allergies Allergy/AdvReac Type Severity Reaction Status Date / Time levofloxacin (From Levaquin) Allergy Mild tendons Verified 05/05/23 11:29 hurt PFSH Acute 2 PFSH: Medical History Acute pancreatitis Torus mandibularis Meatal stenosis Onychodystrophy Hypertension History of intestine removal Surgical History History of cataract surgery Family History Mother Cancer Father CAD (coronary artery disease) Social History Smoking and tobacco/nicotine status: never used tobacco/nicotine Second hand smoke exposure: No Alcohol intake: current Alcohol intake frequency: 0-2 Drinks per Day Substance/Drug Use: never Adopted: No Caregiver/support person: No Lives independently: No Vitals/I&O/Wt Last Vital Signs Temp 98.4 F 09/16/24 12:14 Pulse 118 H 09/16/24 13:01 Resp 28 H 09/16/24 13:01 BP 204/119 09/16/24 13:01 Pulse Ox 94 09/16/24 13:01 O2 Del Method Room Air 09/16/24 12:14 Weight last 48 hrs Weight 88.451 kg Physical Exam 2 Const: COMMON NORMALS: no acute distress and patient oriented x3 Resp: COMMON NORMALS: normal respiratory effort, No retractions, No use of accessory muscles and clear to auscultation bilaterally AUSCULTATION: clear to auscultation bilaterally Cardio: COMMON NORMALS: no JVD, regular rate, regular rhythm, S1 normal heart sound present and S2 normal heart sound present RATE: tachycardic RHYTHM: regular rhythm HEART SOUNDS: S1 normal heart sound present and S2 normal heart sound present GI: COMMON NORMALS: Normal to inspection, nondistended, normoactive bowel sounds present, Soft to palpation and non-tender Extremity: COMMON NORMALS: no pedal edema Neuro: COMMON NORMALS: patient oriented x3, CN's II-XII intact bilaterally and moves all extremities Psych: COMMON NORMALS: mental status grossly normal Data 09/16/24 12:44 09/16/24 13:10 A&P Assessment and plan (1) Hypertensive urgency: (2) Alcohol withdrawal: Plan Acute alcohol withdrawal -With tachycardia -CIWA protocol Hypertensive urgency -Monitor mentation closely -Neurochecks -Cardene drip -Goal reduce baseline by 25%, goal systolic roughly less than 160 diastolic less than 100 -Metoprolol 25 twice daily -Chlorthalidone 25 mg daily -Continue losartan Full code Lovenox for DVT prophylaxis PDMP PDMP Reviewed: Not Reviewed Attestations 2 Medical Necessity Statement*: Patient requires hospitalization for alcohol withdrawal, hypertensive urgency, inpatient, greater than 2 midnights Diagnoses Hypertensive urgency I16.0 Alcohol withdrawal F10.935
[2024-09-16] MEDS: nicardipine 20 MG/200 ML PREMIX 50 MG IV (18:06)
--- NOTE | 2024-09-16 18:09 | ECG_ITS ---
[facility] Date: 2024-[facility]16 Pat Name: Aaron Mcintosh Department: Room: ICU07 Gender: Male Shredding Machine Operator: : 1960 Requested By: Billy Avila Order Number: [id number] Chi MD: Manish Luo M.D. Measurements Intervals [place] Rate: 101 P: 70 [place]: 148 QRS: -39 QRSD: 90 T: 63 QT: 348 QTc: 451 Interpretive Statements SINUS TACHYCARDIA LEFT ATRIAL ENLARGEMENT [-0.15mV P-WAVE IN V1/V2] LEFT AXIS DEVIATION [QRS AXIS < -30] NONSPECIFIC T-WAVE ABNORMALITY Compared to ECG 09/16/2024 17:29:43 Left-axis deviation now present T-wave abnormality now present Electronically Signed On 09-17-2024 19:29:28 SOLAR PHOTOVOLTAIC CREW LEAD by Manish Luo M.D. [email or web address] [id number]
[2024-09-16 18:34] LABS: Anion Gap 21.2 (5-19); Blood Urea Nitrogen 13 mg/dL (8-23); Calcium 9.4 mg/dL (8.5-10.5); Carbon Dioxide 24 mmol/L (22-29); Chloride 98 mmol/L (98-107); Creatinine Clr Calc Pharmacy 99.9519; Glomerular Filtration Rate 134.8 mL/min (90-130); Glucose 105 mg/dL (65-115); NT Pro B Type Natriuretic Pept 386 pg/mL (0-125); Osmolality Calculated 290 mOsm/kg (285-295); Potassium 3.2 mmol/L (3.5-5.1); Sodium 140 mmol/L (136-145)
--- NOTE | 2024-09-16 19:15 | PC.NURSE ---
Took report from Georgette at 1915 pm after shift change report.
[2024-09-16 20:14] LABS: Troponin 5 6HR 18.52 ng/L (0-15); Troponin 5 6HR Delta 0.52 ng/L (0-12)
[2024-09-16] MEDS: doxycycline 100 mg Tablet PO (21:02)
[2024-09-16] MEDS: thiamine 100 mg/mL 2mL SDV IM (21:03)
[2024-09-16] MEDS: chlorthalidone 25 mg Tablet PO (21:03)
[2024-09-16] MEDS: enoxaparin 40 mg/0.4 mL Syringe SUBCUT (21:03)
[2024-09-16] MEDS: pantoprazole 40 mg SDV IVP (21:04)
[2024-09-16] MEDS: nicardipine 20 MG/200 ML PREMIX 75 MG IV ×2 (21:14→23:49)
[2024-09-16 21:34] LABS: Chol HDL Ratio 2.49 mg/dL (1.0-5.00); Cholesterol 291 mg/dL (0-200); HDL Cholesterol 117 mg/dL (60-100); LDL Cholesterol Calculated 158 mg/dL (50-129); LDL HDL Ratio 1.35 RATIO (0.00-3.22); Thyroid Stimulating Hormone 1.19 uIU/mL (0.27-4.20); Triglycerides 81 mg/dL (0-150)
[2024-09-16 21:35] LABS: Alcohol Level < 10 mg/dL (0-10)
[2024-09-16] MEDS: sodium chloride 0.9% 1,000 ML 50 ML IV (21:49)
[2024-09-16 23:53] LABS: Estmated Average Glucose 114; Hemoglobin A1C 5.6 % (4.0-6.0)
[2024-09-17] VITALS (41 sets, daily range): BP systolic 118–171; BP diastolic 57–111; PULSE 82–122; RESP 10–25; TEMP 37–37.5; O2SAT 81–98
[2024-09-17 06:36] LABS: Alanine Aminotransferase 92 U/L (0-41); Albumin Level 4.2 g/dL (3.5-5.2); Alkaline Phosphatase 80 U/L (40-130); Blood Urea Nitrogen 11 mg/dL (8-23); Carbon Dioxide 24 mmol/L (22-29); Chloride 97 mmol/L (98-107); Glomerular Filtration Rate 134.8 mL/min (90-130); Glucose 95 mg/dL (65-115); Osmolality Calculated 287 mOsm/kg (285-295); Sodium 139 mmol/L (136-145); Total Bilirubin 0.7 mg/dL (0.15-1.2); Total Protein 7.2 g/dL (6.6-8.7)
[2024-09-17 06:40] LABS: Creatinine Clr Calc Pharmacy 101.0049
[2024-09-17 06:41] LABS: Anion Gap 21.6 (5-19); Aspartate Amino Transferase 77 U/L (0-40); Potassium 3.6 mmol/L (3.5-5.1)
[2024-09-17 06:58] LABS: Basophils % 0.7 %; Eosinophils # 0.1 10^3/uL (0.0-0.8); Eosinophils % 1.8 %; Hematocrit 44.6 % (37-53); Lymphocytes # 0.7 10^3/uL (0.8-4.8); Lymphocytes % 12.5 %; Mean Corpuscular Hemoglobin 31.7 pg (27-33); Mean Corpuscular Volume 96.3 fl (82-101); Monocytes # 1.1 10^3/uL (0.2-0.9); Monocytes % 18.8 %; Neutrophils # 3.72 10^3/uL (1.8-7.7); Neutrophils % 65.5 %; Nucleated Red Blood Cells % 0 %; Platelet Count 151 10^3/cmm (157-399); Red Blood Count 4.63 10^6/uL (3.85-5.65); Red Cell Distribution Width 13.3 % (12.1-15.1); White Blood Count 5.68 10^3/uL (3.29-11.43)
[2024-09-17] MEDS: metoprolol tartrate 25 mg Tablet PO (08:17)
[2024-09-17] MEDS: multivitamin therapeutic Tablet 1 TAB PO (08:17)
[2024-09-17] MEDS: doxycycline 100 mg Tablet PO (08:18)
[2024-09-17] MEDS: folic acid 1 mg Tablet PO (08:18)
[2024-09-17] MEDS: thiamine 100 mg Tablet PO (08:18)
[2024-09-17] MEDS: chlorthalidone 25 mg Tablet PO (08:18)
[2024-09-17] MEDS: losartan 50 mg Tablet 25 MG PO (08:18)
[2024-09-17 10:18] LABS: Amphetamines Screen Urine Negative (Negative); Barbiturates Screen Urine Negative (Negative); Benzodiazepines Screen Urine Negative (Negative); Cocaine Screen Urine Negative (Negative); Opiate Screen Urine Negative (Negative); PCP Screen Urine Negative (Negative); THC Screen Urine Negative (Negative)
[2024-09-17] MEDS: amlodipine 10 mg Tablet PO (11:00)
[2024-09-17] MEDS: LORazepam 2 mg/mL INJ 1 mL IVP (11:10)
--- NOTE | 2024-09-17 12:29 | P.DS_ITS ---
Discharge Providers Date of Admission: 09/16/24 17:58 Date of Discharge: September 17, 2024 Attending Provider at Admission: Mendel Ny MD Attending Provider at Discharge: Mendel Ny MD Primary Care Provider: Annamaria Lock MD Diagnoses at Discharge Discharge Diagnosis (1) Hypertensive urgency: Status: Acute (2) Alcohol withdrawal: Status: Acute Reason for Visit Reason for Visit: abnormal labs sent by [facility] Course Hospital Course Aaron Mcintosh is a 64 year old male with a past medical history of alcoholism, pancreatitis, renal failure, hypertension, who presents [facility] from primary care physician's office due to elevated blood pressures and tachycardia. Patient has a boil on his back, T10 level that his primary care physician has been draining it, today after draining, patient's blood pressure was noted to be elevated, was tachycardic relatively asymptomatic was sent to [facility] for evaluation. He denies any chest pain, no palpitation no shortness of breath, no headache, blurry vision, no facial droop, no slurring of his words, no focal weakness, no paresthesias he has been given beta-blockers, Vasotec, hydralazine blood pressure continues to rebound, tachycardic, he has been placed on a Cardene drip. He does report history of alcoholism, but he is cut down drinking, his last drink was 2 days ago when he drinks white wine Patient was admitted to [facility] for hypertensive urgency, managed on Cardizem drip, overall clinically improved, weaned off Cardizem drip. Will be discharged on amlodipine 5 mg daily, chlorthalidone 25 mg daily, losartan 25 mg daily, metoprolol 25 twice daily with a close follow-up with primary care provider for blood pressure check. Patient was advised if he were to have any chest pain or strokelike symptoms immediately call [phone] For his alcohol withdrawal, patient was monitored as inpatient, CIWA protocol, will be discharged on a Librium taper. Patient was strongly advised to stop drinking alcohol, morbidity and mortality discussed, he voiced understanding, all questions answered. Discharged on thiamine, folic acid, with close follow- up with primary care provider as outpatient. Advised patient to not drink or drive or operate machinery while taking Librium. Patient does have a boil on his back that was drained by his primary care, on examination boil is 1 x 1 cm, packed, minimal surrounding erythema no drainage, he is going to follow-up with his primary care provider on Thursday for packing removal. I have stopped his Bactrim and switched him to doxycycline. Patient is to follow-up with primary care provider as outpatient Physical Exam Const: COMMON NORMALS: no acute distress and patient oriented x3 Resp: COMMON NORMALS: normal respiratory effort, No retractions, No use of accessory muscles and clear to auscultation bilaterally AUSCULTATION: clear to auscultation bilaterally Cardio: COMMON NORMALS: regular rate, regular rhythm, S1 normal heart sound present and S2 normal heart sound present RATE: regular rate RHYTHM: regular rhythm HEART SOUNDS: S1 normal heart sound present and S2 normal heart sound present GI: COMMON NORMALS: Normal to inspection, nondistended, normoactive bowel sounds present and non-tender Extremity: COMMON NORMALS: no pedal edema Neuro: COMMON NORMALS: patient oriented x3 Psych: COMMON NORMALS: mental status grossly normal Discharge Data Studies Completed and Pending Completed Studies During Hospitalization Category Date Time Status XR chest 1V portable [id number] Stat Exams 09/16/24 12:09 Completed US gall bladder 33697 Stat Ultrasound 09/16/24 15:12 Completed Pending at discharge Category Date Time Status Complete Blood Count w/Auto AM LABS Lab 09/18/24 04:00 Ordered Complete Blood Count w/Auto AM LABS Lab 09/19/24 04:00 Ordered Comprehensive Metabolic Panel AM LABS Lab 09/18/24 04:00 Ordered Comprehensive Metabolic Panel AM LABS Lab 09/19/24 04:00 Ordered Radiology Impressions Chest X-Ray 09/16/24 12:09 IMPRESSION: No acute chest abnormality. Gallbladder Ultrasound 09/16/24 15:12 IMPRESSION: Fatty infiltration of the liver, correlated with elevated liver enzymes would indicate steatohepatitis. Laboratory Results WBC 5.68 10^3/uL (3.29-11.43) 09/17/24 06:48 Corrected WBC Cancelled 09/17/24 05:40 RBC 4.63 10^6/uL (3.85-5.65) 09/17/24 06:48 Hgb 14.70 g/dL (11.27-16.99) 09/17/24 06:48 Hct 44.6 % (37-53) 09/17/24 06:48 MCV 96.3 fl (82-101) 09/17/24 06:48 MCH 31.7 pg (27-33) 09/17/24 06:48 MCHC 33.0 g/dL (30-55) 09/17/24 06:48 RDW 13.3 % (12.1-15.1) 09/17/24 06:48 Plt Count 151 10^3/cmm (157-399) L 09/17/24 06:48 MPV 10.0 fL (7.4-10.4) 09/17/24 06:48 Gran % Cancelled 09/17/24 05:40 Neut % (Auto) 65.5 % 09/17/24 06:48 Lymph % (Auto) 12.5 % 09/17/24 06:48 [place] % (Auto) 18.8 % 09/17/24 06:48 Eos % (Auto) 1.8 % 09/17/24 06:48 Baso % (Auto) 0.7 % 09/17/24 06:48 Neut # (Auto) 3.72 10^3/uL (1.8-7.7) 09/17/24 06:48 Lymph # (Auto) 0.7 10^3/uL (0.8-4.8) L 09/17/24 06:48 [place] # (Auto) 1.1 10^3/uL (0.2-0.9) H 09/17/24 06:48 Eos # (Auto) 0.1 10^3/uL (0.0-0.8) 09/17/24 06:48 Baso # (Auto) 0.0 10^3/uL (0.0-0.1) 09/17/24 06:48 Absolute Gran (auto) Cancelled 09/17/24 05:40 Nucleated RBC % (auto) 0 % 09/17/24 06:48 Nucleated RBCs # 0.0 /100WBC 09/17/24 06:48 Sodium 139 mmol/L (136-145) 09/17/24 05:40 Potassium 3.6 mmol/L (3.5-5.1) 09/17/24 05:40 Chloride 97 mmol/L (98-107) L 09/17/24 05:40 Carbon Dioxide 24 mmol/L (22-29) 09/17/24 05:40 Anion Gap 21.6 (5-19) H 09/17/24 05:40 BUN 11 mg/dL (8-23) 09/17/24 05:40 Creatinine 0.6 mg/dL (0.7-1.2) L 09/17/24 05:40 GFR Calculation 134.8 mL/min (90-130) H 09/17/24 05:40 Glucose 95 mg/dL (65-115) 09/17/24 05:40 Estimat Average Glucose 114 09/16/24 12:44 Hemoglobin A1c 5.6 % (4.0-6.0) 09/16/24 12:44 Calculated Osmolality 287 mOsm/kg (285-295) 09/17/24 05:40 Calcium 9.0 mg/dL (8.5-10.5) 09/17/24 05:40 Total Bilirubin 0.7 mg/dL (0.15-1.2) 09/17/24 05:40 AST 77 U/L (0-40) H 09/17/24 05:40 ALT 92 U/L (0-41) H 09/17/24 05:40 Alkaline Phosphatase 80 U/L (40-130) 09/17/24 05:40 Troponin T Baseline 18 ng/L (0-15) H 09/16/24 13:10 Troponin T 120 Minute 18.82 ng/L (0-15) H 09/16/24 15:30 Delta Troponin T 0.82 ABS# (0-10) 09/16/24 15:30 Troponin T Hi Sens 6Hr 18.52 ng/L (0-15) H 09/16/24 19:48 Troponin T Hi Sens 6Hr Delta 0.52 ng/L (0-12) 09/16/24 19:48 NT-Pro-B Natriuret Pep 386 pg/mL (0-125) H 09/16/24 17:54 Total Protein 7.2 g/dL (6.6-8.7) 09/17/24 05:40 Albumin 4.2 g/dL (3.5-5.2) 09/17/24 05:40 Globulin 3.0 g/dL (1.3-4.6) 09/17/24 05:40 Triglycerides 81 mg/dL (0-150) 09/16/24 13:10 Cholesterol 291 mg/dL (0-200) H 09/16/24 13:10 LDL Cholesterol, Calc 158 mg/dL (50-129) H 09/16/24 13:10 HDL Cholesterol 117 mg/dL (60-100) H 09/16/24 13:10 LDL/HDL Ratio 1.35 RATIO (0.00-3.22) 09/16/24 13:10 Cholesterol/HDL Ratio 2.49 mg/dL (1.0-5.00) 09/16/24 13:10 Lipase 33 U/L (13-60) 09/16/24 13:10 TSH 1.19 uIU/mL (0.27-4.20) 09/16/24 13:10 Urine Color Yellow (Yellow) 09/16/24 15:12 Urine Appearance Clear (CLEAR) 09/16/24 15:12 Urine pH 6.0 (5-7) 09/16/24 15:12 Ur Specific [place] 1.024 (1.005-1.030) 09/16/24 15:12 Urine Protein 3+ (Negative) A 09/16/24 15:12 Urine Glucose (UA) Negative (Normal) 09/16/24 15:12 Urine Ketones 4+ (Negative) 09/16/24 15:12 Urine Blood Negative (Negative) 09/16/24 15:12 Urine Nitrate Negative (Negative) 09/16/24 15:12 Urine Bilirubin Negative (Negative) 09/16/24 15:12 Urine Urobilinogen 1.0 mg/dL (Negative) 09/16/24 15:12 Ur Leukocyte Esterase Negative (Negative) 09/16/24 15:12 Urine RBC 0-2 /hpf (0-2) 09/16/24 15:12 Urine WBC 0-5 /hpf (0-5) 09/16/24 15:12 Ur Squamous Epith Cells 0-5 /hpf (0-5) 09/16/24 15:12 Amorphous Sediment Not Reportable 09/16/24 15:12 Urine Bacteria None seen /hpf (NONE) 09/16/24 15:12 Hyaline Casts 1.21 /lpf 09/16/24 15:12 Urine Opiates Screen Negative ng/mL (Negative) 09/17/24 10:00 Ur Barbiturates Screen Negative ng/mL (Negative) 09/17/24 10:00 Ur Phencyclidine Scrn Negative ng/mL (Negative) 09/17/24 10:00 Ur Amphetamines Screen Negative ng/mL (Negative) 09/17/24 10:00 U Benzodiazepines Scrn Negative ng/mL (Negative) 09/17/24 10:00 Urine Cocaine Screen Negative ng/mL (Negative) 09/17/24 10:00 U Marijuana (THC) Screen Negative ng/mL (Negative) 09/17/24 10:00 Ethyl Alcohol < 10 mg/dL (0-10) 09/16/24 13:10 Vitals Last Vital Signs Temp 99.5 F 09/17/24 11:45 Pulse 90 09/17/24 12:00 Resp 18 09/17/24 12:00 BP 151/96 09/17/24 12:00 Pulse Ox 97 09/17/24 12:00 O2 Del Method Room Air 09/17/24 12:00 Discharge Plan Discharge Patient Disposition: Home Condition: Stable Prescriptions: New chlorthalidone 25 mg Tablet 25 mg PO DAILY 30 Days Qty: 30 0RF doxycycline monohydrate 100 mg Tablet 100 mg PO BID 5 Days Qty: 10 0RF amlodipine 10 mg Tablet 5 mg PO DAILY 30 Days Qty: 30 0RF metoprolol tartrate 25 mg Tablet 25 mg PO BID@0900,2100 30 Days Qty: 60 0RF thiamine mononitrate (vit B1) [Vitamin B-1 (mononitrate)] 100 mg Tablet 100 mg PO DAILY 30 Days Qty: 30 0RF multivitamin with folic acid [Thera] 400 mcg Tablet 1 tab PO DAILY 30 Days Qty: 30 0RF chlordiazepoxide HCl 10 mg capsule See Rx Instructions .ROUTE .COMPLEX Qty: 9 0RF Rx Instructions: 1 tab bid for 3 days, then 1 tab daily for 3 days, then stop Continued losartan 25 mg tablet 25 mg PO DAILY multivitamin Tablet 1 tab PO DAILY Discontinued sulfamethoxazole-trimethoprim 800-160 mg tablet 1 tab PO BID Discharge Orders: Discharge Order (Routine); Ordered 09/17/24 Ordered By: Mendel Ny Referrals: Annamaria Lock MD [Primary Care Provider] - 1-3 days Discharge Diet: Cardiac Discharge Activity: Resume usual activity Patient Instructions: Atenolol/Chlorthalidone (By mouth) (Tenoretic 100, Tenoretic 50), Chlordiazepoxide/Clidinium (By mouth) (Librax), Metoprolol (By mouth) (Lopressor, Toprol XL), Doxycycline (By mouth) (Acticlate, Adoxa, Avidoxy, Monodox, Doryx), Thiamine (By mouth) ([facility] Vitamin B1, Nature's..., Multivitamins, Adult Formula (By mouth) (Daily Multiple Vitamins,..., Amlodipine (By mouth) (Hypertenipine-2.5, Norvasc, Norliqva), Opioid Safety Discharge Attestations Time Spent in Discharge Care*: greater than 30 min Quality Metrics Clinical Quality Measures [ No reported AMI, CVA or VTE this stay] Coding Level of Care Code 25290 Total time (in minutes) for Discharge: 45 Diagnoses Hypertensive urgency I16.0 Alcohol withdrawal F10.939
--- NOTE | 2024-09-17 12:56 | PC.NURSE ---
Sealed packet returned to patient with 480 dollars in 20's, 500 in 50's and a wallet with 2 IDs written on envelope.
--- NOTE | 2024-09-17 13:21 | PC.NURSE ---
Patient provided with extensive education regarding hypertension and to stop drinking alcohol. Patient educated on new and discontinued home meds as well as follow up appointments and home blood pressure monitoring. Patient eager to leave hospital and requested to leave against medical advice before Dr. Ny rounded with patient. Patient confirms pharmacy and plans to tack picker medications today since tomorrow is Thursday and pharmacy hours are limited. Educated patient on S/S to call 911 and when to seek care. All belongings with patient at the time of discharge, Patient conformed sealed envelope had all contents. Patient brought to emergency room entrance via wheelchair and then ambulated to personal vehicle.
== END 2024-09-17 13:15 | disposition home or self-care (01) ==
LOC: ER 12:21 → ICU 17:58
PROVIDERS: Admitting Provider Family Medicine; Emergency Provider Family Medicine; PCP Family Medicine; Visit Provider Family Medicine
DX: I16.0 Hypertensive urgency (principal); I10 Essential (primary) hypertension; R00.0 Tachycardia, unspecified; F10.939 Alcohol use, unspecified with withdrawal, unspecified; Z79.899 Other long term (current) drug therapy; Z88.8 Allergy status to other drugs, medicaments and biological substances; Z90.49 Acquired absence of other specified parts of digestive tract
CPT/HCPCS: 36415; 71045; 76705; 80048; 80053; 80061; 80306; 80307; 81001; 83036; 83690; 83880; 84443; 84484; 85025; 93005; 94664; 96365; 96366; 96372; 96375; 96376; 97161; 97165; 99285; G0378; J0360; J1650; J2060; J2470; J3411; J3490; J7030

== ENCOUNTER → 2024-10-05 14:05 | Outpatient (BNVA) | payer MEDICARE, SELFPAY | PROVIDERS: PCP Family Medicine; Visit Provider Nurse Practitioner Family | DX: L72.0 Epidermal cyst (principal); D22.5 Melanocytic nevi of trunk; L81.4 Other melanin hyperpigmentation; L82.1 Other seborrheic keratosis; L91.8 Other hypertrophic disorders of the skin | CPT/HCPCS: 99213 ==

== ENCOUNTER → 2024-10-17 15:42 | Outpatient (BNVA) | payer MEDICARE, SELFPAY | PROVIDERS: PCP Family Medicine; Visit Provider Nurse Practitioner Family | DX: D22.5 Melanocytic nevi of trunk (principal); L73.8 Other specified follicular disorders; L57.8 Other skin changes due to chronic exposure to nonionizing radiation; L72.0 Epidermal cyst | CPT/HCPCS: 10060; 99213 ==

== ENCOUNTER → 2024-10-27 14:17 | Outpatient (BNVA) | payer MEDICARE, SELFPAY | PROVIDERS: PCP Family Medicine; Visit Provider Nurse Practitioner Family | DX: L72.0 Epidermal cyst (principal) | CPT/HCPCS: 99212 ==

== ENCOUNTER → 2024-11-14 10:35 | Outpatient (BNVA) | payer MEDICARE, SELFPAY | PROVIDERS: PCP Family Medicine; Visit Provider Nurse Practitioner Family | DX: L73.8 Other specified follicular disorders (principal); Z72.0 Tobacco use | CPT/HCPCS: 99214 ==

== ENCOUNTER → 2025-01-09 11:31 | Outpatient (BNVA) | payer MEDICARE, SELFPAY | PROVIDERS: PCP Family Medicine; Visit Provider Nurse Practitioner Family | DX: L72.0 Epidermal cyst (principal); L91.8 Other hypertrophic disorders of the skin; L57.8 Other skin changes due to chronic exposure to nonionizing radiation; L81.4 Other melanin hyperpigmentation; L23.9 Allergic contact dermatitis, unspecified cause; L57.0 Actinic keratosis | CPT/HCPCS: 17000; 99214 ==

== ENCOUNTER → 2025-02-27 13:00 | Outpatient (BNVA) | payer MEDICARE, SELFPAY | PROVIDERS: PCP Family Medicine; Visit Provider Family Medicine | DX: Z12.5 Encounter for screening for malignant neoplasm of prostate (principal); I10 Essential (primary) hypertension; E78.2 Mixed hyperlipidemia; E83.42 Hypomagnesemia; E87.6 Hypokalemia; R79.89 Other specified abnormal findings of blood chemistry | CPT/HCPCS: 80053; 80061; 82306; 82607; 83735; 84443; 85025; G0103 ==

== ENCOUNTER 2025-03-10 12:34 | Outpatient (CLI) | payer MEDICARE, SELFPAY ==
--- NOTE | 2025-03-10 12:45 | USCV_ITS ---
Aaron Mcintosh Age: 64 Gender: M : 1960 Exam Date: 03/10/2025 13:03 Ordering Phys: Bart Ndiaye DO Technologist: FABIENNE [place] [facility] [place]: Murmur BP: 199 / 129 HR: 88 Rhythm: Sinus Technical Quality: Adequate MEASUREMENTS (Male / Female) Normal Values 2D ECHO LV Diastolic Diameter PLAX 4.8 cm 4.2 - 5.9 / 3.9 - 5.3 cm IVS Diastolic Thickness 1.3 cm 0.6 - 1.0 / 0.6 - 0.9 cm IVS Systolic Thickness 1.8 cm LVPW Diastolic Thickness 1.2 cm 0.6 - 1.0 / 0.6 - 0.9 cm LVPW Systolic Thickness 1.9 cm LVOT Diameter 2.1 cm LV Ejection Fraction 2D Teich 57.0 % LV Ejection Fraction MOD 4C 53.1 % LV Ejection Fraction MOD 2C 51.4 % LV Ejection Fraction 2C AL 52.9 % LA Diameter 3.7 cm RA Systolic Volume 4C AL 32.7 ml RA Systolic Volume 4C MOD 30.1 ml LA Sys Volume AL 41.6 cm cubed LA Sys Volume Index AL 19.1 cm cubed/m squared Aorta at Sinotubular Diameter 2.8 cm IVC Diameter 2.2 cm M-MODE LA Ao Ratio MM 1.5 AV Cusp Separation MM 1.0 cm DOPPLER AV Peak Velocity 147.0 cm/s LVOT Peak Velocity 120.0 cm/s AV Area Cont Eq vti 2.7 cm squared AV Area Cont Eq pk 2.8 cm squared MV Peak Velocity 166.0 cm/s MV Area PHT 5.8 cm squared Mitral E to A Ratio 0.4 TV Peak E Velocity 53.0 cm/s PV Peak Velocity 104.0 cm/s FINDINGS Left Ventricle Normal left ventricular cavity size. Normal left ventricular systolic function. Left ventricular ejection fraction is 60%. Mild left ventricular hypertrophy. Right Ventricle Normal right ventricular size and systolic function. RVSP could not be calculated due to incomplete tricuspid regurgitation velocity profile. Right Atrium Normal right atrial size. Left Atrium Normal left atrial size. Mitral Valve Structurally normal mitral valve. No mitral valve stenosis. No mitral valve regurgitation. Aortic Valve Aortic valve not well visualized. Mild aortic valve calcification. No aortic valve stenosis. No aortic valve regurgitation. Tricuspid Valve No tricuspid valve regurgitation. Pulmonic Valve No pulmonary valve stenosis. No pulmonary valve regurgitation. Pericardium No pericardial effusion. Aorta Normal size aortic root and proximal ascending aorta. IVC Inferior vena cava not well visualized. CONCLUSIONS 1. Normal biventricular size and systolic function, left ventricular ejection fraction 60%. 2. Aortic valve sclerosis without stenosis 3. No significant valvular dysfunction Shantanu Anderson MD, FACC (Electronically Signed) Final Date: 12 March 2025 14:35 S
== END 2025-03-10 12:35 | disposition home or self-care (01) ==
LOC: RAD 12:35
PROVIDERS: PCP Family Medicine; Visit Provider Family Medicine
DX: R01.1 Cardiac murmur, unspecified (principal); I51.7 Cardiomegaly; R93.1 Abnormal findings on diagnostic imaging of heart and coronary circulation; I35.8 Other nonrheumatic aortic valve disorders
CPT/HCPCS: 93306

== ENCOUNTER 2025-03-23 11:23 | Outpatient (CLI) | payer SELFPAY ==
[2025-03-23 12:45] LABS: HF Add Manual Diff No
[2025-03-23 12:47] LABS: Hematocrit 41.1 % (37-53); Hemoglobin 14.10 g/dL (11.27-16.99); Mean Corpuscular HGB Conc 34.3 g/dL (30-55); Mean Corpuscular Hemoglobin 32.0 pg (27-33); Mean Corpuscular Volume 93.4 fl (82-101); Nucleated Red Blood Cells % 0 %; Platelet Count 238 10^3/cmm (157-399); Red Blood Count 4.40 10^6/uL (3.85-5.65); White Blood Count 7.35 10^3/uL (3.29-11.43)
[2025-03-23 13:03] LABS: Estmated Average Glucose 114; Hemoglobin A1C 5.6 % (4.0-6.0)
[2025-03-23 13:31] LABS: Alanine Aminotransferase 31 U/L (0-41); Albumin Level 4.5 g/dL (3.5-5.2); Alkaline Phosphatase 71 U/L (40-130); Anion Gap 15.0 (5-19); Aspartate Amino Transferase 37 U/L (0-40); Blood Urea Nitrogen 14 mg/dL (8-23); Calcium 9.5 mg/dL (8.5-10.5); Carbon Dioxide 29 mmol/L (22-29); Chloride 93 mmol/L (98-107); Cholesterol 212 mg/dL (0-200); Globulin 3.1 g/dL (1.3-4.6); Glucose 108 mg/dL (65-115); HDL Cholesterol 69 mg/dL (60-100); Osmolality Calculated 277 mOsm/kg (285-295); Potassium 4.0 mmol/L (3.5-5.1); Sodium 133 mmol/L (136-145); Thyroid Stimulating Hormone 0.88 uIU/mL (0.27-4.20); Total Protein 7.6 g/dL (6.6-8.7); Triglycerides 182 mg/dL (0-150)
== END 2025-03-23 11:24 | disposition home or self-care (01) ==
PROVIDERS: PCP Family Medicine; Visit Provider Dermatology
DX: Z01.89 Encounter for other specified special examinations (principal)
CPT/HCPCS: 36415